=== PATIENT | female | born 1940 | race Caucasian/White ===

== ENCOUNTER 2020-02-04 16:29 | Emergency (ER) | payer MEDICARE, SELFPAY ==
[2020-02-04] VITALS (7 sets, daily range): BP systolic 83–138; BP diastolic 48–62; PULSE 63–76; RESP 20–21; TEMP 36.9; O2SAT 97–100
--- NOTE | 2020-02-04 16:45 | ED.DIZZY ---
HPI - Dizziness General Chief Complaint: Dizziness Stated Complaint: LIGHTHEADED Time Seen by Provider: 02/04/20 16:45 History of Present Illness HPI Narrative: Increasingly unsteady gait for quite some time. Worse today. Especially when she first stands up. 2 falls today. No dizziness. She did bump her head slightly as she fell one of the times, but does not believe that there was any significant impact. She reports poor appetite recently. She has Parkinson's disease and is walker deendent. Related Data Home Medications Medication Instructions Recorded Confirmed carbidopa-levodopa tablet 02/04/20 donepezil mg 02/04/20 02/04/20 memantine [Namenda XR] 28 mg PO DAILY 02/04/20 02/04/20 pravastatin 02/04/20 Allergies Allergy/AdvReac Type Severity Reaction Status Date / Time nitrofurantoin Allergy Unknown Rash Unverified 02/04/20 17:00 Review of Systems Review of Systems: All systems reviewed & are unremarkable except as noted in HPI and below Constitutional: Constitutional: Denies fever(s) and Reports weakness Cardiovascular: Cardiovascular: Denies chest pain Respiratory: Respiratory: Denies dyspnea Gastrointestinal: Gastrointestinal: Denies nausea and Denies vomiting Genitourinary: Genitourinary: Denies hematuria and Denies dysuria Musculoskeletal: Musculoskeletal: Denies back pain Neurologic: Denies dizziness ON LICENSE OF [facility] Social History Social History Gender identity (if verbalized by the patient): Female Exam Const: General: healthy appearing, no acute distress and alert Orientation/consciousness: patient oriented x3 HENMT: Head: normal to inspection Neck: Neck: normal visual inspection and no lymphadenopathy Chest: Chest palpation & inspection: no tenderness Resp: Effort & Inspection: normal respiratory effort Auscultation: clear to auscultation bilaterally, no rales, no rhonchi and no wheezes Cardio: Jugular venous distension: no JVD Rate: regular rate Rhythm: regular rhythm Heart sounds: no murmurs GI: Inspection: non-distended GI Palp: Yes Soft to palpation and No Tenderness to palpation present (GI) Skin: General skin exam: normal color Neuro: General: patient oriented x3 and moves all extremities Speech: normal speech Extrem: General: no edema Psych: Appearance: well kempt Affect: normal affect Course Vital Signs Vital signs: Vital Signs Temperature 36.9 C 02/04/20 16:38 Pulse Rate 70 02/04/20 16:38 Respiratory Rate 21 H 02/04/20 16:38 Blood Pressure 113/61 02/04/20 16:38 Pulse Oximetry 100 02/04/20 16:38 Temperature 36.9 C 02/04/20 16:38 Pulse Rate 69 02/04/20 20:08 Respiratory Rate 20 02/04/20 20:08 Blood Pressure 101/60 02/04/20 20:08 Pulse Oximetry 97 02/04/20 20:08 MDM - Dizziness MDM Narrative Medical decision making narrative: She appears mildly dehydrated. Symptoms improved with fluids. Walking with stable gait. No significant injury identified Medical Records Attestation: I reviewed the patient's medical records. Lab Data Attestation: I reviewed the patient's lab results. Result diagrams: 02/04/20 17:05 02/04/20 17:05 Labs: Lab Results 02/04/20 02/04/20 02/04/20 Range/Units 17:05 17:05 17:24 WBC 6.3 (4.5-10.0) K/mm3 RBC 4.13 L (4.2-5.4) M/mm3 Hgb 12.6 (12.0-15.0) g/dL Hct 38.4 (37.0-47.0) % MCV 93.0 (80-100) fl MCH 30.5 (26-34) pg MCHC 32.8 (32-36) g/dl RDW 13.2 (11.5-14.5) % Plt Count 167 (150-375) k/mm3 MPV 12.2 H (7.4-10.4) fl Immature Gran % (Auto) 0.6 H (0-0.5) % Neut % (Auto) 82.5 H (45.5-73.1) % Lymph % (Auto) 8.7 L (18.3-44.2) % Lake % (Auto) 6.5 (2.6-8.5) % Eos % (Auto) 1.4 (0-4.4) % Baso % (Auto) 0.3 (0.2-1.2) % Lymph # (Auto) 0.55 L (0.9-3.2) K/mm3 Lake # (Auto) 0.4 (0.1-0.6) K/mm3 Eos # (Auto) 0.1 (0-0.3) K/mm3 Baso # (Auto) 0.0 (0.0-0.1) K/mm3 Abs Immat Gran (auto
--- NOTE | 2020-02-04 16:46 | ECG_ITS ---
Measurements Intervals [place] Rate: 71 P: 4 IN: 231 QRS: -21 QRSD: 96 T: 114 QT: 404 QTc: 442 Interpretive Statements SINUS RHYTHM WITH FIRST DEGREE AV BLOCK LEFT VENTRICULAR HYPERTROPHY AND ST-T CHANGE INFERIOR INFARCT, AGE INDETERMINATE BORDERLINE ST-T WAVE ABNORMALITY- ANTEROLATERAL LEADS BASELINE ARTIFACT- I, III, AVR, AVL, AVF ABNORMAL ECG Electronically Signed On 02-05-2020 7:11:51 CDT by Lio Locke D.O.
[2020-02-04] MEDS: SODIUM CHLORIDE 0.9% IV 1,000 ML 999 ML IV CONT (17:03)
[2020-02-04 17:10] LABS: Basophils Percent Auto 0.3 % (0.2-1.2); Eosinophils Absolute Auto 0.1 K/mm3 (0-0.3); Eosinophils Percent Auto 1.4 % (0-4.4); Hematocrit 38.4 % (37.0-47.0); Hemoglobin 12.6 g/dL (12.0-15.0); Immature Granulocyte Absolute 0.04 K/mm3 (0.00-0.031); Immature Granulocyte Percent A 0.6 % (0-0.5); Lymphocytes Absolute Auto 0.55 K/mm3 (0.9-3.2); Lymphocytes Percent Auto 8.7 % (18.3-44.2); Mean Corpuscular HGB Conc 32.8 g/dl (32-36); Mean Corpuscular Hemoglobin 30.5 pg (26-34); Mean Platelet Volume 12.2 fl (7.4-10.4); Monocytes Absolute Auto 0.4 K/mm3 (0.1-0.6); Monocytes Percent Auto 6.5 % (2.6-8.5); Neutrophils Absolute Auto 5.2 K/mm3 (1.3-6.7); Neutrophils Percent Auto 82.5 % (45.5-73.1); Platelet Count Result 167 k/mm3 (150-375); Red Blood Count 4.13 M/mm3 (4.2-5.4); Red Cell Distribution Width 13.2 % (11.5-14.5); White Blood Count 6.3 K/mm3 (4.5-10.0)
[2020-02-04 17:43] LABS: Add Urine Microscopic? YES; Appearance Urine Clear (Clear); Bacteria Urine Trace /hpf; Bilirubin Urine Negative (Negative); Blood Urine Negative (Negative); Calcium Oxalate Crystals Urine Present /hpf; Color Urine Yellow (Yellow); Glucose Urine UA Negative (Negative); Hyaline Casts Urine 20-29 /lpf; Ketones Urine Trace mg/dL (Negative); Leukocyte Esterase Ur Negative LEU/UL (Negative); Mucus Urine Rare /lpf; Nitrate Urine Negative (Negative); Protein Urine 1+ mg/dL (Negative); RBC Urine 0-2 /hpf (0-2); Specific Grav Ur 1.018 (1.001-1.035); Squamous Epithelial Cell Urine Moderate /hpf (Few); Urobilinogen Urine Negative mg/dL (<2.0); WBC Urine 0-3 /hpf
[2020-02-04 18:23] LABS: Alanine Aminotransferase 31 U/L (4-35); Albumin Level 4.3 g/dL (3.5-5.1); Alkaline Phosphatase 63 U/L (38-126); Aspartate Amino Transferase 181 U/L (14-36); Bilirubin,Total 1.1 mg/dL (0.2-1.3); Blood Urea Nitrogen 29 mg/dL (7-17); Carbon Dioxide 27 mmol/L (22-30); Chloride 94 mmol/L (98-107); Estimated CRCL calculation 28 ml/min; Estimated Glomerular Filt Rate 39; Glucose 91 mg/dL (65-105); Potassium 3.4 mmol/L (3.4-5.0); Sodium 133 mmol/L (137-145)
--- NOTE | 2020-02-04 19:55 | PC.NURSE ---
Called [facility] to transport back to [place]...ETA 2044
--- NOTE | 2020-02-04 20:18 | PC.NURSE ---
spoke with randall rick at [facility]. updates given. staets no trnasport avail for pt. pt states unable to get in and out of care. pt to take ambulance back to [facility], eta 2039. al questions answered
== END 2020-02-04 20:53 ==
PROVIDERS: Emergency Provider Emergency Medicine; PCP Family Medicine
DX: I95.1 Orthostatic hypotension (principal)
CPT/HCPCS: 36415; 51701; 80053; 81001; 85025; 93005; 96360; 99283; J7030

== ENCOUNTER 2022-08-23 12:57 | Inpatient (IN) | payer MEDICARE, SELFPAY ==
--- NOTE | ~2022-08-23 | CT_ITS ---
EXAMINATION: CT brain wo con DATE: 08/23/2022 18:11 INDICATION: Falls and weakness TECHNIQUE: Computed tomography (CT) of the head was performed without intravenous contrast. Sagittal and coronal reconstructions were performed. The mA was adjusted according to patient size. Iterative reconstruction technique was employed. The dose-length product was 605.33 mGy-cm. COMPARISON: head CT dated 04/05/2015 FINDINGS: No acute fracture. No acute intracranial hemorrhage, acute infarction or abnormal extra axial fluid c ollection. There is mild scattered white matter hypoattenuation consistent with chronic small vessel ischemic disease. Symmetric prominence of the sulci and and subarachnoid spaces overlying the convexi ties consistent with moderate age-appropriate diffuse cerebral volume loss. Ventricles are normal and symmetric. No mass/mass effect. Changes of left intraocular lens replacement. The orbits and mastoid air cells are normal. Mild mucoperiosteal thickening in the bilateral ethmoid sinuses. Increased chiquis stases at the osseous defect just to the right of midline at the anterior portion of the incompletely visualized ring of C1 which could be either developmental or a chronic nonunited fracture. Small allison unt of chronic calcified pannus about the tip of the dens. IMPRESSION: 1. No acute fracture or acute intracranial process. 2. Age-related changes the brain including moderate diffuse volume loss and mild scattered white len er hypoattenuation consistent with chronic small vessel ischemic disease. 3. Increasing diastases at a chronic defect at the anterior ring of C1 which could be either developm ental or sequela of chronic nonunited fracture. Reviewed, dictated and finalized at location A. NURSE IMPRESSION: 1. No acute fracture or acute intracranial process. 2. Age-related changes the brain including moderate diffuse volume loss and mil d scattered white matter hypoattenuation consistent with chronic small vessel i schemic disease. 3. Increasing diastases at a chronic defect at the anterior ring of C1 which co uld be either developmental or sequela of chronic nonunited fracture.
--- NOTE | ~2022-08-23 | XR_ITS ---
EXAMINATION: XR chest 1V portable DATE: 08/27/2022 13:57 INDICATION: Dyspnea. TECHNIQUE: A single frontal view of the chest was obtained. COMPARISON: Chest single view 08/23/2022, chest CT 08/23/2022 FINDINGS: There is mild atelectasis at left lower lung zone. No pleural effusion or pneumothorax. The heart size is normal. Calcified mediastinal lymph nodes are consistent with old granulomatous diseas e. There are multiple old right rib fractures. IMPRESSION: 1. Mild atelectasis in left lower lung zone. Reviewed, dictated and finalized at location A. N STEWARD
--- NOTE | ~2022-08-23 | CT_ITS ---
CT scan of the left upper extremity CLINICAL HISTORY: Cellulitis, abscess TECHNIQUE: Following intravenous administration of 100 cc of Omnipaque 350 contrast sagittal, axial i maging of the left upper chest was performed. Sagittal and coronal reformatted images were constructe d. Dose reduction technique was used on this scan by utilizing automated exposure control and iterati ve reconstruction technique. FINDINGS: Osseous structures are intact. No fracture or dislocation seen. No periosteal reaction or d estructive change identified. Visualized musculature is grossly unremarkable. There is marked, diffuse subcutaneous soft tissue margarita ma and swelling, consistent with history of cellulitis. No definite abscess identified. No joint effu tanner identified. IMPRESSION: Marked, diffuse subcutaneous soft tissue edema and swelling, consistent with cellulitis. No evidence for abscess or osteomyelitis. Reviewed, dictated and finalized at location [] YLENE OPERATOR IMPRESSION: Marked, diffuse subcutaneous soft tissue edema and swelling, consistent with ce llulitis. No evidence for abscess or osteomyelitis.
--- NOTE | ~2022-08-23 | US_ITS ---
EXAMINATION: US soft tissue UE LT DATE: 08/28/2022 19:32 INDICATION: Left upper limb swelling and cellulitis. TECHNIQUE: Multiple grayscale and Doppler ultrasound images of the left upper limb were obtained. COMPARISON: CT 08/26/2022 FINDINGS: There is subcutaneous edema with hyperechoic fat in left upper limb in the patient's area o f concern, consistent with cellulitis. No abscess. IMPRESSION: 1. Left upper limb cellulitis. No abscess. Reviewed, dictated and finalized at location A. SALES TECHNICAL CONSULTANT
--- NOTE | ~2022-08-23 | CT_ITS ---
EXAMINATION: CT diagnostic chest wo con DATE: 08/23/2022 19:39 INDICATION: lung nodule TECHNIQUE: Computed tomography (CT) of the chest was performed without intravenous contrast. Addition al 3D reconstructions utilizing coronal maximum intensity projection (MIP) were performed. Automated exposure control and iterative reconstruction technique were employed. The dose-length product was 33 8.16 mGy-cm. COMPARISON: Radiographs dated 08/23/[address] dated 04/14/1970 FINDINGS: Mild basilar and dependent atelectasis in the bilateral lower lobes. Additional mild discoid atelecta sis in the left upper lobe. No pneumonia, pulmonary edema, pleural effusion or pneumothorax. No suspi cious pulmonary nodules. Cardiomegaly. Atherosclerotic coronary artery calcification. No pericardial effusion. Fusiform ascending thoracic aortic aneurysm measuring up to 4.5 cm. Calcified mediastinal l ymph nodes consistent with old granulomatous disease. No pathologically enlarged thoracic lymphadenop athy. There is callus formation surrounding healing anterolateral right second, third and fourth rib fractures which accounts for the nodular opacity of concern on the prior radiographs. 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 Mild thoracic dextro scoliosis. Severe cervical and tho racolumbar spondylosis. 4 cm parapelvic cyst at the right kidney. 12 mm hyperdense paranasal sinuses hemorrhagic left renal cyst. Tiny gallstones in the dependent aspect of the normal-appearing visualiz ed portion of the gallbladder. IMPRESSION: 1. Calcifications surrounding a healing subacute anterolateral right second, third and fourth rib fra ctures which accounts for the nodular opacity of concern. 2. Scattered atelectasis in both lungs with dependent and basilar predominance. No other acute cardio pulmonary disease. 3. Cardiomegaly. 4. 4.5 cm ascending thoracic aortic aneurysm. 5. Cholelithiasis. Reviewed, dictated and finalized at location A. TRATOR IMPRESSION: 1. Calcifications surrounding a healing subacute anterolateral right second, th ird and fourth rib fractures which accounts for the nodular opacity of concern. 2. Scattered atelectasis in both lungs with dependent and basilar predominance. No other acute cardiopulmonary disease. 3. Cardiomegaly. 4. 4.5 cm ascending thoracic aortic aneurysm. 5. Cholelithiasis.
--- NOTE | ~2022-08-23 | US_ITS ---
EXAMINATION: US venous doppler UE DATE: 08/23/2022 18:06 INDICATION: Left upper extremity edema and erythema TECHNIQUE: Grayscale images without and with compression and Doppler images of the bilateral upper ex tremity veins were obtained. COMPARISON: None. FINDINGS: The left internal jugular vein, subclavian vein, axillary vein, brachial vein, basilic vein, cephalic vein, radial vein, and ulnar vein are patent. IMPRESSION: 1. Patent left upper extremity veins. No evidence of venous thrombosis. Reviewed, dictated and finalized at location A. OR FUNCTIONAL ANALYST
--- NOTE | ~2022-08-23 | XR_ITS ---
EXAMINATION: XR elbow LT min 3V DATE: 08/23/2022 18:00 INDICATION: Left elbow erythema and swelling TECHNIQUE: Anteroposterior, two oblique and lateral views of the left elbow were obtained. COMPARISON: None. FINDINGS: Alignment is normal. No fracture or joint effusion. Joint spaces are normal. Soft tissues are unremar kable. IMPRESSION: 1. Negative left elbow radiographs. Reviewed, dictated and finalized at location A. WEAR SALESPERSON
--- NOTE | ~2022-08-23 | XR_ITS ---
EXAMINATION: XR chest 1V DATE: 08/23/2022 18:01 INDICATION: Weakness. Frequent falls. TECHNIQUE: frontal view of the chest was obtained. COMPARISON: Chest radiograph and CT dated 04/14/2017 FINDINGS: Mild linear atelectasis at the lateral left lower lung zone and mild streaky bibasilar opacities and favor atelectasis over pneumonia. Nodular opacity lateral right mid to upper lung zone which may be a rtifact of superimposed rib shadows however neoplasm cannot be absolutely excluded. Cardiomegaly. Andrew cified left hilar and mediastinal lymph nodes consistent with old granulomatous disease. Atherosclero tic aorta. Mild S-shaped thoracolumbar scoliosis with severe spondylosis. Bilateral glenohumeral oste oarthritis likely severe with suggestion of flattening of portions of the articular surfaces of the b ilateral humeral heads. IMPRESSION: 1. Nodular opacity lateral right mid to upper lung zone which could be artifact of superimposed rib s hadows or lung cancer would recommend further evaluation with chest CT. 2. Mild bibasilar atelectasis versus less likely pneumonia. 3. Cardiomegaly. Reviewed, dictated and finalized at location A. ICAL RESEARCH NURSE IMPRESSION: 1. Nodular opacity lateral right mid to upper lung zone which could be artifact of superimposed rib shadows or lung cancer would recommend further evaluation with chest CT. 2. Mild bibasilar atelectasis versus less likely pneumonia. 3. Cardiomegaly.
--- NOTE | ~2022-08-23 | XR_ITS ---
EXAMINATION: XR shoulder LT min 2V DATE: 08/23/2022 18:01 INDICATION: Left shoulder pain. Frequent falls. TECHNIQUE: AP internally and externally rotated, AP oblique externally rotated and transscapular Y vi ews of the left shoulder were obtained. COMPARISON: None FINDINGS: Normal alignment. No fracture.Severe glenohumeral osteoarthritis with remodeling of the left humeral head. Moderate left acromioclavicular osteoarthritis. Calcified left hilar and mediastinal lymph nod es consistent with old granulomatous disease. Soft tissues are unremarkable. 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 Reviewed, dictated and finalized at location A. CORE WELDER
[2022-08-23 13:06] VITALS: BP 118/64; PULSE 77; RESP 18; TEMP 37.2; O2SAT 95
--- NOTE | 2022-08-23 17:22 | ECG_ITS ---
Measurements Intervals [place] Rate: 72 P: 12 MT: 222 QRS: -34 QRSD: 89 T: 107 QT: 399 QTc: 437 Interpretive Statements SINUS RHYTHM WITH FIRST DEGREE AV BLOCK WITH OCCASIONAL VENTRICULAR PREMATURE COMPLEXES POSSIBLE LEFT ATRIAL ENLARGEMENT [-0.1mV P WAVE IN V1/V2] MARKED LEFT AXIS DEVIATION [QRS AXIS < -30] Possible old inferior NM LEFT VENTRICULAR HYPERTROPHY AND ST-T CHANGE [VOLTAGE CRITERIA PLUS ST/T ABNORMALITY] COMPARED TO ECG 02/04/2020 16:40:25 LEFT-AXIS DEVIATION NOW PRESENT The ischemic ST depression has improved Electronically Signed On 08-24-2022 8:38:07 BRANCH MAKER by Erin Goins M.D.
--- NOTE | 2022-08-23 17:24 | ED.UPPEXIN ---
HPI - Extremity Injury (Upper) General Chief Complaint: Extremity Injury, Upper <Christine Reardon PA-C - Last Filed: 08/23/22 20:44> Stated Complaint: left arm swelling <Christine Reardon PA-C - Last Filed: 08/23/22 20:44> Time Seen by Provider: 08/23/22 17:05 <Christine Reardon PA-C - Last Filed: 08/23/22 20:44> Source: patient, family and EMS <Christine Reardon PA-C - Last Filed: 08/23/22 20:44> Mode of arrival: EMS <ROSELIA Lawrence Last Filed: 08/23/22 20:44> Limitations: dementia <Christine Reardon PA-C - Last Filed: 08/23/22 20:44> History of Present Illness HPI narrative: This is a 82 year old female that presents to the ER for left arm swelling and redness. Ongoing over the last 5 days. Patient is noted to have a superficial abrasion in the area of redness. She does not remember what its from. Patient reports she has been feeling generally weak and has been falling lately. Reports she loses her balance. Does not report any specific injuries from these falls. She was recently on an antibiotic for UTI. Family is unsure which antibiotic. Denies fever, cough, congestion, chest pain, shortness of breath, abdominal pain, vomiting, or dysuria. <Christine Reardon PA-C - Last Filed: 08/23/22 20:44> Related Data Home Medications: Home Medications Medication Instructions Recorded Confirmed donepezil 5 mg tablet 5 mg PO DAILY 02/04/20 08/24/22 pravastatin 40 mg tablet 80 mg PO DAILY 02/04/20 08/24/22 Tylenol Arthritis Pain 650 mg PO TID PRN Pain 08/24/22 08/24/22 artificial 1 drp EACH EYE TID 08/24/22 08/24/22 tears(sfjpfhs-pywzceic-cqyjorj) 0.1 %-0.3 %-0.2 % eye drops (GenTeal Tears Moderate) atenolol 25 mg tablet 25 mg PO BID 08/24/22 08/24/22 bupropion HCl 150 mg tablet,12 hr 150 mg PO QAM 08/24/22 08/24/22 sustained-release carbidopa 25 mg-levodopa 250 mg 2 tablet PO QID 08/24/22 08/24/22 tablet celecoxib 200 mg capsule 200 mg PO DAILY 08/24/22 08/24/22 cyanocobalamin (vitamin B-12) See Rx Instructions .Route .COMPLEX 08/24/22 08/24/22 1,000 mcg/mL injection syringe docusate sodium 100 mg capsule 100 mg PO BID 08/24/22 08/24/22 fluticasone propionate 50 2 spray intranasal BID PRN 08/24/22 08/24/22 mcg/actuation nasal Congestion spray,suspension lisinopril 20 mg tablet 20 mg PO DAILY 08/24/22 08/24/22 memantine 28 mg capsule 28 mg PO DAILY 08/24/22 08/24/22 sprinkle,extended release 24hr mirtazapine 30 mg tablet 30 mg PO DAILY 08/24/22 08/24/22 oxybutynin chloride 5 mg 5 mg PO DAILY 08/24/22 08/24/22 tablet,extended release 24 hr oxymetazoline 0.05 % nasal spray 2 spray intranasal Q12H PRN 08/24/22 08/24/22 Congestion polyethylene glycol 3350 17 gram 17 g PO DAILY PRN Constipation 08/24/22 08/24/22 oral powder packet sennosides 8.6 mg-docusate sodium 1 tab-cap PO HS 08/24/22 08/24/22 50 mg tablet (Stimulant Laxative Plus) sertraline 100 mg tablet 100 mg PO DAILY 08/24/22 08/24/22 <Christine Reardon PA-C - Last Filed: 08/23/22 20:44> Allergies/Adverse Reactions: Allergies Allergy/AdvReac Type Severity Reaction Status Date / Time nitrofurantoin Allergy Unknown Rash Verified 08/24/22 01:42 <Christine Reardon PA-C - Last Filed: 08/23/22 20:44> Review of Systems Review of Systems: CONSTITUTIONAL: Denies fever EYES: Denies redness, or discharge. ENT: Denies rhinorrhea, congestion, sore throat CARDIOVASCULAR: Denies chest pain, or edema. RESPIRATORY: Denies cough or dyspnea. GASTROINTESTINAL: Denies abdominal pain, nausea, vomiting GENITOURINARY: Denies dysuria or hematuria. SKIN: Denies rash MUSCULOSKELETAL: Reports treatment of allergy. Denies back pain NEUROLOGIC: Reports generalized weakness. <Christine Reardon PA-C - Last Filed: 08/23/22 20:44> All systems reviewed & are unremarkable except as noted in HPI and below <Christine Reardon PA-C - Last Filed: 08/23/22 20:44> [facility] Past Medical History Medical History:
[2022-08-23] MEDS: SODIUM CHLORIDE 0.9% IV 500 ML 999 ML IV CONT (17:29)
[2022-08-23 17:42] LABS: Basophils Percent Auto 0.2 % (0.2-1.2); Eosinophils Absolute Auto 0.1 K/mm3 (0-0.3); Eosinophils Percent Auto 0.3 % (0-4.4); Hematocrit 42.8 % (37.0-47.0); Hemoglobin 13.4 g/dL (12.0-15.0); Immature Granulocyte Absolute 0.08 K/mm3 (0.00-0.031); Immature Granulocyte Percent A 0.5 % (0-0.5); Lymphocytes Absolute Auto 0.69 K/mm3 (0.9-3.2); Lymphocytes Percent Auto 4.3 % (18.3-44.2); Mean Corpuscular HGB Conc 31.3 g/dl (32-36); Mean Corpuscular Hemoglobin 31.6 pg (26-34); Mean Corpuscular Volume 100.9 fl (80-100); Mean Platelet Volume 10.9 fl (7.4-10.4); Monocytes Absolute Auto 1.2 K/mm3 (0.1-0.6); Monocytes Percent Auto 7.8 % (2.6-8.5); Neutrophils Absolute Auto 13.9 K/mm3 (1.3-6.7); Neutrophils Percent Auto 86.9 % (45.5-73.1); Platelet Count Result 192 k/mm3 (150-375); Red Blood Count 4.24 M/mm3 (4.2-5.4); Red Cell Distribution Width 13.7 % (11.5-14.5)
[2022-08-23 17:49] LABS: Lactic Acid Reflex 1.2 mmol/L (0.7-2.0)
[2022-08-23 18:00] LABS: INR 1.2; Prothrombin Time 15.1 Seconds (11.1-14.7)
[2022-08-23 18:01] LABS: Partial Thromboplastin Time 37.8 SECONDS (22.3-36.8)
[2022-08-23 18:06] LABS: Alanine Aminotransferase 8 U/L (6-35); Alkaline Phosphatase 155 U/L (38-126); Anion Gap 8 mmol/L (8-16); Aspartate Amino Transferase 31 U/L (14-36); Blood Urea Nitrogen 26 mg/dL (7-17); CRP 20.4 mg/dL (<1.0); Calcium 8.9 mg/dL (8.4-10.2); Carbon Dioxide 27 mmol/L (22-30); Chloride 104 mmol/L (98-107); Estimated CRCL calculation 48 ml/min; Estimated Glomerular Filt Rate > 60; Glucose 104 mg/dL (65-110); Sodium 139 mmol/L (137-145)
[2022-08-23 19:13] LABS: Influenza A QL RT-PCR Negative (Negative); Influenza B QL RT-PCR Negative (Negative); SARS-CoV-2 RNA PCR Negative
--- NOTE | 2022-08-23 19:27 | PC.NURSE ---
report given to KAUSHAL Tobin.
[2022-08-23 19:33] LABS: Erythrocyte Sedimentation Rate 48 mm/hr (0-20)
[2022-08-23 20:13] LABS: Bacteria Urine 3+ /hpf; Mucus Urine Rare /lpf; Squamous Epithelial Cell Urine Rare /hpf (Few)
[2022-08-23 21:07] LABS: Appearance Urine Clear (Clear); Color Urine Yellow (Yellow); Specific Grav Ur 1.025 (1.001-1.035); pH Urine 5.5 (5.0-9.0)
[2022-08-23 21:08] LABS: Blood Urine Negative (Negative); Glucose Urine UA Negative (Negative); Ketones Urine 1+ mg/dL (Negative); Nitrate Urine Positive (Negative); Protein Urine Negative (Negative)
[2022-08-23 21:09] LABS: Add Urine Microscopic? YES; Bilirubin Urine Negative (Negative); Leukocyte Esterase Ur Trace LEU/UL (Negative); Urobilinogen Urine 0.2 mg/dL (<2.0)
--- NOTE | 2022-08-23 21:32 | PM.IMHP ---
H&P: HPI History of Present Illness Date/Time: 08/23/22 21:32 Chief Complaint: cellulitis Narrative: This is an 82-year-old female with past medical history significant for Parkinson's disease, Parkinson's dementia, dyslipidemia, chronic constipation. Patient was brought to the emergency room due to right for arm warmth, tenderness, redness, for the last 2-3 days, most of the history has been obtained from daughter who is at bedside according to daughter patient has been falling quite frequently patient lives at assisted living Facility. Patient denies any fevers, rigors, chills, nausea, vomiting, abdominal pain, cough, sputum production. Preliminary workup was significant for WBC 12546, patient tested negative for influenza A influenza B and COVID-19. Review of Systems Review of Systems: ROS unobtainable: Yes unobtainable due to mental status ( obtunded) [facility] Past Medical History Medical History (Updated 08/24/22 @ 02:51 by La Leblanc MD) History of chronic kidney disease History of dementia History of hyperlipidemia History of Parkinson's disease Social History Social History (Updated 08/23/22 @ 17:34 by Christine Reardon PA-C) Smoking status: Never smoker Alcohol intake: never Substance use: never Lack of Transportation: No Lack of Food: Never True Current Housing: I Have Housing Concerned About Future Housing: No Difficulty Paying Gas/Electric Bills: No Difficulty Paying for Meds: No Currently Unemployed: No Education: Associate Degree Difficulty w/ Childcare or Family Care: No Gender identity (if verbalized by the patient): Female Spiritual care concerns: No Meds Home Medications and Allergies Home Medications Medication Instructions Recorded Confirmed Type donepezil 5 mg tablet 5 mg PO DAILY 02/04/20 08/24/22 History pravastatin 40 mg tablet 80 mg PO DAILY 02/04/20 08/24/22 History Tylenol Arthritis Pain 650 mg PO TID PRN Pain 08/24/22 08/24/22 History artificial 1 drp EACH EYE TID 08/24/22 08/24/22 History tears(xmrjqtj-lzowpjwi-owyqsou) 0.1 %-0.3 %-0.2 % eye drops (GenTeal Tears Moderate) atenolol 25 mg tablet 25 mg PO BID 08/24/22 08/24/22 History bupropion HCl 150 mg tablet,12 hr 150 mg PO QAM 08/24/22 08/24/22 History sustained-release carbidopa 25 mg-levodopa 250 mg 2 tablet PO QID 08/24/22 08/24/22 History tablet celecoxib 200 mg capsule 200 mg PO DAILY 08/24/22 08/24/22 History cyanocobalamin (vitamin B-12) See Rx Instructions .Route .COMPLEX 08/24/22 08/24/22 History 1,000 mcg/mL injection syringe docusate sodium 100 mg capsule 100 mg PO BID 08/24/22 08/24/22 History fluticasone propionate 50 2 spray intranasal BID PRN 08/24/22 08/24/22 History mcg/actuation nasal Congestion spray,suspension lisinopril 20 mg tablet 20 mg PO DAILY 08/24/22 08/24/22 History memantine 28 mg capsule 28 mg PO DAILY 08/24/22 08/24/22 History sprinkle,extended release 24hr mirtazapine 30 mg tablet 30 mg PO DAILY 08/24/22 08/24/22 History oxybutynin chloride 5 mg 5 mg PO DAILY 08/24/22 08/24/22 History tablet,extended release 24 hr oxymetazoline 0.05 % nasal spray 2 spray intranasal Q12H PRN 08/24/22 08/24/22 History Congestion polyethylene glycol 3350 17 gram 17 g PO DAILY PRN Constipation 08/24/22 08/24/22 History oral powder packet sennosides 8.6 mg-docusate sodium 1 tab-cap PO HS 08/24/22 08/24/22 History 50 mg tablet (Stimulant Laxative Plus) sertraline 100 mg tablet 100 mg PO DAILY 08/24/22 08/24/22 History Allergies Allergy/AdvReac Type Severity Reaction Status Date / Time nitrofurantoin Allergy Unknown Rash Verified 08/24/22 01:42 Vital Signs Vital Signs - 24 hr 08/23/22 13:06 Temperature 98.9 F Pulse Rate 77 Respiratory Rate 18 Blood Pressure 118/64 Pulse Oximetry 95 Oxygen Delivery Room Air Exam Narrative: patient is laying in a stretcher Const: General: comfortable, no acute distress, we
[2022-08-23 22:14] VITALS: BP 152/87; PULSE 69; RESP 16; TEMP 36.6; O2SAT 94
[2022-08-23 23:38] VITALS: BP 152/89; PULSE 72; RESP 20; O2SAT 95
--- NOTE | 2022-08-23 23:56 | ADMGEN ---
This patient, Samantha Maldonado, was admitted to Medical Room 349-01. Patient/family oriented to hospital policies and general routines including ID bracelet, bed and alarms, visiting hours, pain management, procedures, bathroom and other care routines, personal items, smoking policy, room service/diet, and visiting hours. Information on how to activate the Rapid Response Team has been discussed. Patient/Family are encouraged to report perceived risks to care and to ask questions if they do not understand what they are told or what they should do.
[2022-08-24] VITALS (7 sets, daily range): BP systolic 128–159; BP diastolic 64–96; PULSE 66–83; RESP 16–18; TEMP 36.4–37.2; O2SAT 91–96; BMI 26.4
[2022-08-24 07:49] LABS: Basophils Percent Auto 0.2 % (0.2-1.2); Eosinophils Percent Auto 0.1 % (0-4.4); Hematocrit 40.3 % (37.0-47.0); Hemoglobin 12.9 g/dL (12.0-15.0); Immature Granulocyte Absolute 0.11 K/mm3 (0.00-0.031); Immature Granulocyte Percent A 0.7 % (0-0.5); Lymphocytes Absolute Auto 0.48 K/mm3 (0.9-3.2); Mean Corpuscular Hemoglobin 31.8 pg (26-34); Mean Corpuscular Volume 99.3 fl (80-100); Mean Platelet Volume 10.5 fl (7.4-10.4); Monocytes Absolute Auto 0.9 K/mm3 (0.1-0.6); Monocytes Percent Auto 5.7 % (2.6-8.5); Neutrophils Absolute Auto 14.3 K/mm3 (1.3-6.7); Neutrophils Percent Auto 90.3 % (45.5-73.1); Platelet Count Result 175 k/mm3 (150-375); Red Blood Count 4.06 M/mm3 (4.2-5.4); Red Cell Distribution Width 13.7 % (11.5-14.5); White Blood Count 15.9 K/mm3 (4.5-10.0)
[2022-08-24 08:06] LABS: CRP 25.7 mg/dL (<1.0)
--- NOTE | 2022-08-24 09:35 | PM.IMPN ---
Progress Note: A&P Assessment and Plan (1) Cellulitis of arm, left: Code(s): L03.114 - Cellulitis of left upper limb Status: Acute Assessment and Plan: Significant cellulitis to the left arm likely due to abrasion -It is somewhat firm but I will tried elevated today to see if that improves. If it does not improve may consider soft tissue ultrasound to rule out abscess -No blood clot noted on ultrasound -Continue cefazolin for now as the cellulitis seems to be improving. If there is lack of improvement tomorrow may consider adding vancomycin -Trend CBC, blood cultures pending (2) Parkinson's disease: Code(s): G20 - Parkinson's disease Status: Acute Assessment and Plan: Continue sinemet (3) Thoracic aortic aneurysm: Code(s): I71.20 - Thoracic aortic aneurysm, without rupture, unspecified Status: Acute Assessment and Plan: New diagnosis according to daughter -f/u with vascular sx -spoke with daughter about the size, no need for immediate intervention due to size (4) Recurrent falls: Code(s): R29.6 - Repeated falls Status: Acute Assessment and Plan: Order PT/OT -[place] now [place], may need rehab/SNF/higher level care (5) Leukocytosis: Code(s): D72.829 - Elevated white blood cell count, unspecified Status: Acute Assessment and Plan: Likely due to cellulitis -monitor trends (6) Pyuria: Code(s): R82.81 - Pyuria Status: Acute Assessment and Plan: Await urine culture -adjust abx as needed Time Spent With Patient Time with patient: 25 - 35 minutes Subjective Date/time seen: 08/24/22 09:35 Interval history: Pt is a Pleasantly demented patient here for cellulitis. Patient states she is doing well and she ate breakfast today. The pain in her arm is improving. She denies chest pain, shortness a breath, diarrhea, abdominal pain, fevers or chills. Review of Systems Review of Systems: All systems reviewed & are unremarkable except as noted in HPI and below Exam Narrative: General: Well developed well nourished patient in NAD HEENT: normocephalic Neck: supple Neuro: Alert and oriented x2. No resting tremor CV:RRR Resp:CTA Abd: Soft, non distended. No pain to palpation. Positive bowel sounds Extremities: Left arm with abrasion to the elbow and erythema circumferentially and swelling. it does seem to have regressed from the demarcated lines. no swelling in the lower extremities bilaterally Objective Data Vital Signs Vital Signs: Vital Signs - 24 hr 08/23/22 13:06 08/23/22 22:14 08/23/22 23:38 Temperature 98.9 F 97.8 F Pulse Rate 77 69 72 Respiratory Rate 18 16 20 Blood Pressure 118/64 152/87 H 152/89 H Pulse Oximetry 95 94 95 Oxygen Delivery Room Air 08/24/22 01:00 08/24/22 01:58 08/24/22 06:00 Temperature 97.8 F 97.5 F L Pulse Rate 66 66 72 Respiratory Rate 16 16 18 Blood Pressure 159/87 H 157/96 H Pulse Oximetry 91 91 96 Oxygen Delivery Room Air Intake/Output Intake/Output: Intake & Output 08/21/22 08/22/22 08/23/22 08/24/22 23:59 23:59 23:59 23:59 Intake Total 650 50 Output Total 400 0 Balance 250 50 Meds/Results Medications: Active Medications Generic Name Dose Route Start Last Admin Trade Name Freq PRN Reason Stop Dose Admin Acetaminophen 650 mg 08/24/22 02:56 Acetaminophen 325 Mg Tablet BY MOUTH TID PRN Pain Artificial Tears 1 drop 08/24/22 09:00 Artificial Tears Ophth Soln 15 Ml Bottle EACH EYE TID NIDA Atenolol 25 mg 08/24/22 09:00 Atenolol 25 Mg Tablet PO Q12HR COUNT INCLUDES THE [facility] Bupropion HCl 150 mg 08/24/22 09:00 Bupropion Hcl Sr (12 Hr) 150 Mg Tab PO QAM COUNT INCLUDES THE [facility] Carbidopa/Levodopa 2 tablet 08/24/22 08:00 Carbidopa/Levodopa 25/250 Mg Tablet PO 0800,1200,1700,2100 NIDA Celecoxib 200 mg 08/24/22 08:00 Celecoxib 200 Mg Capsule PO DAILY@0800 COUNT INCLUDES THE [facility] [employer]
[2022-08-24] MEDS: ARTIFICIAL TEARS OPHTH SOLN 15 ML BOTTLE 1 DROP EACH EYE ×3 (09:52→18:26)
[2022-08-24] MEDS: buPROPion HCL SR (12 HR) 150 MG TAB PO (09:53)
[2022-08-24] MEDS: CARBIDOPA/LEVODOPA 25/250 MG TABLET 2 TABLET PO ×4 (09:53→20:34)
[2022-08-24] MEDS: CELECOXIB 200 MG CAPSULE PO (09:53)
[2022-08-24] MEDS: DOCUSATE SODIUM 100 MG CAPSULE PO ×2 (09:53→18:26)
[2022-08-24] MEDS: SERTRALINE HCL 50 MG TABLET 100 MG PO (09:54)
[2022-08-24] MEDS: MEMANTINE HCL XR 28 MG CAP PO (09:54)
[2022-08-24] MEDS: lisinopriL 20 MG TABLET PO (09:54)
[2022-08-24] MEDS: MIRTAZAPINE 30 MG TABLET PO (09:54)
[2022-08-24] MEDS: PRAVASTATIN SODIUM 20 MG TABLET 80 MG PO (09:54)
[2022-08-24] MEDS: DONEPEZIL HCL 5 MG TABLET PO (09:54)
[2022-08-24] MEDS: atenoloL 25 MG TABLET PO ×2 (09:55→20:33)
[2022-08-24 11:19] LABS: Estimated CRCL calculation 47 ml/min; Estimated Glomerular Filt Rate > 60
[2022-08-24] MEDS: SENNA/DOCUSATE SODIUM TABLET 1 TAB PO (20:34)
[2022-08-25 05:16] VITALS: BP 171/84; PULSE 63; RESP 20; TEMP 36.4; O2SAT 94
[2022-08-25 06:37] LABS: Anion Gap 5 mmol/L (8-16); Blood Urea Nitrogen 23 mg/dL (7-17); CRP 26.2 mg/dL (<1.0); Calcium 8.5 mg/dL (8.4-10.2); Carbon Dioxide 28 mmol/L (22-30); Chloride 104 mmol/L (98-107); Estimated CRCL calculation 47 ml/min; Estimated Glomerular Filt Rate > 60; Glucose 104 mg/dL (65-110); Potassium 3.7 mmol/L (3.4-5.0); Sodium 137 mmol/L (137-145)
[2022-08-25 08:45] LABS: Basophils Absolute Auto 0.1 K/mm3 (0.0-0.1); Basophils Percent Auto 0.4 % (0.2-1.2); Eosinophils Absolute Auto 0.2 K/mm3 (0-0.3); Eosinophils Percent Auto 1.2 % (0-4.4); Hematocrit 41.1 % (37.0-47.0); Hemoglobin 12.7 g/dL (12.0-15.0); Immature Granulocyte Absolute 0.13 K/mm3 (0.00-0.031); Immature Granulocyte Percent A 0.9 % (0-0.5); Lymphocytes Absolute Auto 0.74 K/mm3 (0.9-3.2); Mean Corpuscular HGB Conc 30.9 g/dl (32-36); Mean Corpuscular Volume 103.5 fl (80-100); Mean Platelet Volume 11.4 fl (7.4-10.4); Monocytes Absolute Auto 0.9 K/mm3 (0.1-0.6); Monocytes Percent Auto 6.2 % (2.6-8.5); Neutrophils Absolute Auto 12.8 K/mm3 (1.3-6.7); Neutrophils Percent Auto 86.3 % (45.5-73.1); Platelet Count Result 175 k/mm3 (150-375); Red Blood Count 3.97 M/mm3 (4.2-5.4); White Blood Count 14.8 K/mm3 (4.5-10.0)
--- NOTE | 2022-08-25 08:56 | PM.IMPN ---
Progress Note: A&P Assessment and Plan (1) Cellulitis of arm, left: Code(s): L03.114 - Cellulitis of left upper limb Status: Acute Assessment and Plan: Significant cellulitis to the left arm. No necrosis. -No blood clot noted on ultrasound -increase cefazolin to 2 grams Q8 hours and Vancomycin IV pharmacy to dose. -check non-vascular US to rule out abscess. -trend CBC. CRP and WBC still elevated. Afebrile. -Elevate extremity. -Apply ice for pain and swelling. -PRN analgesics -triple antibiotic ointment to all other abrasions (2) Parkinson's disease: Code(s): G20 - Parkinson's disease Status: Chronic Assessment and Plan: Continue sinemet (3) Thoracic aortic aneurysm: Code(s): I71.20 - Thoracic aortic aneurysm, without rupture, unspecified Status: Chronic Assessment and Plan: New diagnosis according to daughter -f/u with vascular sx -size discussed with her daughter, no need for immediate intervention due to size (4) Recurrent falls: Code(s): R29.6 - Repeated falls Status: Acute Assessment and Plan: PT/OT evaluation -pt now at [place], may need rehab/SNF/higher level care -change remeron to HS -stop oxybutynin (5) Leukocytosis: Code(s): D72.829 - Elevated white blood cell count, unspecified Status: Acute Assessment and Plan: Likely due to cellulitis and UA suggests infection. Urine culture >100,000 CFU e.coli -monitor trends -continue antibiotics (6) Pyuria: Code(s): R82.81 - Pyuria Status: Acute Assessment and Plan: Await urine culture -adjust abx as needed Subjective Date/time seen: 08/25/22 08:56 Her left arm is still red, painful and swollen. She does not think there is much improvement and thinks it may be slightly more swollen than yesterday. No paresthesia or paralysis. She had some tenderness to her anterior chest last night while sleeping but it is gone now. She moves around more at night and her legs, arms, left shoulder and chest hurts. No shortness of breath, palpitations, abd pain, N/V/D. Review of Systems Review of Systems: All systems reviewed & are unremarkable except as noted in HPI and below Exam Narrative: GENERAL: No acute respiratory distress, frail, older adult female. Sitting up in bed HEENT: Normocephalic. sclera nonicteric. PERRL. EOM intact, dry mucous membranes NECK: No JVD. RESPIRATORY:? RR regular at rest. Lung sounds clear to auscultation bilateral upper and left lower lung [place]. diminished right lower lobe. No wheezing, crackles or rhonchi. CARDIO:? Normal S1 and S2 regular rate and rhythm. No murmurs, gallops or rubs. GI: soft, round and nontender to palpation. bowel sounds present in all quadrants. No suprapubic tenderness. SKIN: Fair, warm & dry. no rashes or open lesions. Left mid-lower forearm to mid-upper arm distal to shoulder with moderate edema, erythema and very tender to palpation. No significant change regression of erythema from marked borders. Left olecranon with scabbed abrasion. Left dorsal foot area with small abrasion, right hand lateral border with raised, scabbed abrasion, left knee with multiple small abrasions- all open to air without drainage. EXTREMITIES: Grossly normal ROM. no edema, redness or tenderness. dorsalis pedis pulses palpable and equal. NEURO: no focal deficits. cranial nerves 2-12 grossly intact. sensation intact bilateral upper and lower extremities. Objective Data Vital Signs Vital Signs: Vital Signs - 24 hr 08/24/22 09:55 08/24/22 14:00 08/24/22 20:33 Temperature 98.3 F Pulse Rate 83 73 78 Respiratory Rate 18 Blood Pressure 128/68 Pulse Oximetry 94 Oxygen Delivery 08/24/22 20:00 08/24/22 21:25 08/25/22 05:16 Temperature 99 F 97.5 F L Pulse Rate 75 63 Respiratory Rate 18 20 Blood Pressure 134/64 171/84 H Pulse Oximetry 94 94 Oxygen Delivery Room Air I
[2022-08-25] MEDS: ARTIFICIAL TEARS OPHTH SOLN 15 ML BOTTLE 1 DROP EACH EYE ×3 (09:09→17:56)
[2022-08-25] MEDS: buPROPion HCL SR (12 HR) 150 MG TAB PO (09:13)
[2022-08-25] MEDS: CARBIDOPA/LEVODOPA 25/250 MG TABLET 2 TABLET PO ×4 (09:13→21:19)
[2022-08-25] MEDS: CELECOXIB 200 MG CAPSULE PO (09:13)
[2022-08-25] MEDS: MEMANTINE HCL XR 28 MG CAP PO (09:14)
[2022-08-25] MEDS: lisinopriL 20 MG TABLET PO (09:14)
[2022-08-25] MEDS: MIRTAZAPINE 30 MG TABLET PO ×2 (09:14→21:19)
[2022-08-25] MEDS: DONEPEZIL HCL 5 MG TABLET PO (09:14)
[2022-08-25] MEDS: DOCUSATE SODIUM 100 MG CAPSULE PO ×2 (09:14→17:56)
[2022-08-25] MEDS: PRAVASTATIN SODIUM 20 MG TABLET 80 MG PO (09:14)
[2022-08-25] MEDS: SERTRALINE HCL 50 MG TABLET 100 MG PO (09:14)
[2022-08-25 09:15] VITALS: PULSE 67
[2022-08-25] MEDS: atenoloL 25 MG TABLET PO ×2 (09:15→21:20)
[2022-08-25] MEDS: FAMOTIDINE 10 MG TABLET PO ×2 (13:23→21:20)
[2022-08-25] MEDS: NEOMYCIN/POLYMYXIN/BACITRACIN OINTMENT 15 GM TUBE 1 APPLIC TOPICAL (13:24)
[2022-08-25] MEDS: LIDOCAINE 5% PATCH 2 PATCH TRANSDERM (13:24)
[2022-08-25] MEDS: ceFAZolin 2 GM/D5W 50 ML 2 GM/50 ML BAG IVPB ×2 (13:30→21:37)
[2022-08-25 14:00] VITALS: BP 146/70; PULSE 69; RESP 16; TEMP 36.8; O2SAT 95
[2022-08-25 20:51] VITALS: BP 163/82; PULSE 71; RESP 24; TEMP 37; O2SAT 94
[2022-08-25] MEDS: SENNA/DOCUSATE SODIUM TABLET 1 TAB PO (21:19)
[2022-08-25 21:20] VITALS: PULSE 72
[2022-08-25] MEDS: ACETAMINOPHEN 325 MG TABLET 650 MG PO (21:20)
[2022-08-26] MEDS: ceFAZolin 2 GM/D5W 50 ML 2 GM/50 ML BAG IVPB (05:39)
[2022-08-26 06:00] VITALS: BP 171/80; PULSE 65; RESP 16; TEMP 36.4; O2SAT 93
[2022-08-26] MEDS: hydrALAZINE HCL 20 MG/ML VIAL 10 MG IV PUSH (06:52)
[2022-08-26 07:10] LABS: Basophils Percent Auto 0.3 % (0.2-1.2); Eosinophils Absolute Auto 0.2 K/mm3 (0-0.3); Eosinophils Percent Auto 1.6 % (0-4.4); Hematocrit 40.8 % (37.0-47.0); Hemoglobin 12.8 g/dL (12.0-15.0); Immature Granulocyte Absolute 0.15 K/mm3 (0.00-0.031); Immature Granulocyte Percent A 1.1 % (0-0.5); Lymphocytes Percent Auto 6.4 % (18.3-44.2); Mean Corpuscular HGB Conc 31.4 g/dl (32-36); Mean Corpuscular Hemoglobin 32.1 pg (26-34); Mean Corpuscular Volume 102.3 fl (80-100); Mean Platelet Volume 10.7 fl (7.4-10.4); Monocytes Absolute Auto 0.6 K/mm3 (0.1-0.6); Monocytes Percent Auto 4.4 % (2.6-8.5); Neutrophils Absolute Auto 12.2 K/mm3 (1.3-6.7); Neutrophils Percent Auto 86.2 % (45.5-73.1); Platelet Count Result 177 k/mm3 (150-375); Red Blood Count 3.99 M/mm3 (4.2-5.4); White Blood Count 14.2 K/mm3 (4.5-10.0)
[2022-08-26 07:18] LABS: Estimated CRCL calculation 54 ml/min; Estimated Glomerular Filt Rate > 60
[2022-08-26] MEDS: PRAVASTATIN SODIUM 20 MG TABLET 80 MG PO (08:21)
[2022-08-26 08:22] VITALS: PULSE 78
[2022-08-26] MEDS: atenoloL 25 MG TABLET PO (08:22)
[2022-08-26] MEDS: CELECOXIB 200 MG CAPSULE PO (08:22)
[2022-08-26] MEDS: DONEPEZIL HCL 5 MG TABLET PO (08:22)
[2022-08-26] MEDS: lisinopriL 20 MG TABLET PO (08:22)
[2022-08-26] MEDS: CARBIDOPA/LEVODOPA 25/250 MG TABLET 2 TABLET PO ×3 (08:22→18:03)
[2022-08-26] MEDS: DOCUSATE SODIUM 100 MG CAPSULE PO ×2 (08:22→18:03)
[2022-08-26] MEDS: SERTRALINE HCL 50 MG TABLET 100 MG PO (08:23)
[2022-08-26] MEDS: FAMOTIDINE 10 MG TABLET PO (08:24)
[2022-08-26] MEDS: ARTIFICIAL TEARS OPHTH SOLN 15 ML BOTTLE 1 DROP EACH EYE ×3 (08:24→18:03)
[2022-08-26] MEDS: LIDOCAINE 5% PATCH 2 PATCH TRANSDERM (08:24)
[2022-08-26] MEDS: buPROPion HCL SR (12 HR) 150 MG TAB PO (08:29)
[2022-08-26] MEDS: NEOMYCIN/POLYMYXIN/BACITRACIN OINTMENT 15 GM TUBE 1 APPLIC TOPICAL (08:29)
[2022-08-26] MEDS: MEMANTINE HCL XR 28 MG CAP PO (08:58)
[2022-08-26 09:04] LABS: Blood Urea Nitrogen 21 mg/dL (7-17)
[2022-08-26 11:49] VITALS: BMI 26.4
--- NOTE | 2022-08-26 13:19 | PM.IMPN ---
Progress Note: A&P Assessment and Plan (1) Cellulitis of arm, left: Code(s): L03.114 - Cellulitis of left upper limb Status: Acute Assessment and Plan: Significant cellulitis to the left arm. No necrosis. -No blood clot noted on ultrasound -08/26 CT left arm with diffuse cellulitis, but no apparent joint effusion or abscess. -cefazolin increased to 2 grams Q8 hours 08/25 but no significant improvement. Stop Cefazolin. -Start Rocephin 2 gram Q24 hours and metronidazole 500 mg PO Q8 hours -Continue Vancomycin IV pharmacy to dose. -trend CBC. -CRP and WBC still elevated and bands continue to rise. -Afebrile. -Elevate extremity. -Apply ice for pain and swelling. -PRN analgesics -triple antibiotic ointment to all other abrasions (2) Parkinson's disease: Code(s): G20 - Parkinson's disease Status: Chronic Assessment and Plan: Continue sinemet (3) Thoracic aortic aneurysm: Code(s): I71.20 - Thoracic aortic aneurysm, without rupture, unspecified Status: Chronic Assessment and Plan: New diagnosis according to daughter -f/u with vascular sx -size discussed with her daughter, no need for immediate intervention due to size (4) Recurrent falls: Code(s): R29.6 - Repeated falls Status: Acute Assessment and Plan: PT/OT evaluation -pt now [place], may need rehab/SNF/higher level care -change remeron to HS -stop oxybutynin (5) Leukocytosis: Qualifiers: Leukocytosis type: bandemia Qualified Code(s): D72.825 - Bandemia Code(s): D72.829 - Elevated white blood cell count, unspecified Status: Acute Assessment and Plan: Likely due to cellulitis and UA suggests infection. -monitor trends -continue antibiotics as above (6) Pyuria: Code(s): R82.81 - Pyuria Status: Acute Assessment and Plan: Urine culture >100,000 CFU e.coli pansensitive -Treated with cefazolin started 08/23, changed to Rocephin 08/26 which both cover the urine. 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 Her daughter is at bedside and concerned that the redness is progressing up to the wrist. No fevers overnight. No paresthesia. She denies chest pain, SOB, abdominal pain, N/V/D or constipation. Review of Systems Review of Systems: All systems reviewed & are unremarkable except as noted in HPI and below Exam Narrative: GENERAL: No acute distress, Sitting up in bed HEENT: sclera nonicteric. Pupils equal and round. mucous membranes moist. NECK: No JVD. RESPIRATORY:? RR regular at rest. Lung sounds clear to auscultation bilaterally. No wheezing, crackles or rhonchi. CARDIO:? Normal S1 and S2 regular rate and rhythm. No murmurs, gallops or rubs. GI: soft, round and nontender to palpation. bowel sounds present in all quadrants. No suprapubic tenderness. SKIN: Left mid-lower forearm to mid-upper arm distal to shoulder with moderate edema, bright red erythema extending beyond marked borders. Very tender to palpation. Left olecranon with scabbed abrasion and no discharge. Left dorsal foot area with small abrasion, right hand lateral border with raised scabbed abrasion and small blood blister, left knee with multiple small abrasions- all open to air without drainage. EXTREMITIES: Grossly normal ROM. BLE without edema, redness or tenderness. dorsalis pedis pulses palpable and equal. NEURO: no focal deficits. Objective Data Vital Signs Vital Signs: Vital Signs - 24 hr 08/25/22 14:34 08/25/22 14:00 08/25/22 20:51 Temperature 98.2 F 98.6 F Pulse Rate 69 71 Respiratory Rate 16 24 H Blood Pressure 146/70 H 163/82 H Pulse Oximetry 95 94 Oxygen Delivery Room Air 08/25/22 21:20 08/25/22 20:00 08/26/22 06:00 Temperature 97.6 F P
[2022-08-26 14:00] VITALS: BP 145/71; PULSE 70; RESP 16; TEMP 36.4; O2SAT 91
--- NOTE | 2022-08-26 15:35 | PCPTNOTE ---
Attempted to see patient for PT, however patient declined due to just getting done working with OT.
[2022-08-26] MEDS: cefTRIAXone 2 GM in SODIUM CHLORIDE 0.9% IV 100 ML 200 ML IVPB (16:22)
[2022-08-26] MEDS: metroNIDAZOLE 250 MG TABLET 500 MG PO ×2 (16:22→23:58)
[2022-08-26 20:29] VITALS: PULSE 80
[2022-08-26] MEDS: HALOPERIDOL LACTATE 5 MG/ML VIAL IM (20:31)
[2022-08-26 20:37] VITALS: BP 135/71; PULSE 69; RESP 16; TEMP 36.9; O2SAT 93
[2022-08-27 05:39] LABS: Basophils Percent Auto 0.3 % (0.2-1.2); Eosinophils Absolute Auto 0.3 K/mm3 (0-0.3); Eosinophils Percent Auto 2.2 % (0-4.4); Hemoglobin 12.9 g/dL (12.0-15.0); Immature Granulocyte Absolute 0.23 K/mm3 (0.00-0.031); Immature Granulocyte Percent A 1.8 % (0-0.5); Lymphocytes Absolute Auto 0.84 K/mm3 (0.9-3.2); Lymphocytes Percent Auto 6.5 % (18.3-44.2); Mean Corpuscular HGB Conc 30.7 g/dl (32-36); Mean Corpuscular Hemoglobin 31.7 pg (26-34); Mean Corpuscular Volume 103.2 fl (80-100); Mean Platelet Volume 10.2 fl (7.4-10.4); Monocytes Absolute Auto 0.5 K/mm3 (0.1-0.6); Monocytes Percent Auto 4.2 % (2.6-8.5); Neutrophils Absolute Auto 10.9 K/mm3 (1.3-6.7); Platelet Count Result 194 k/mm3 (150-375); Red Blood Count 4.07 M/mm3 (4.2-5.4); White Blood Count 12.9 K/mm3 (4.5-10.0)
[2022-08-27 05:56] LABS: Anion Gap 8 mmol/L (8-16); Blood Urea Nitrogen 19 mg/dL (7-17); Calcium 8.5 mg/dL (8.4-10.2); Carbon Dioxide 27 mmol/L (22-30); Chloride 109 mmol/L (98-107); Estimated CRCL calculation 54 ml/min; Estimated Glomerular Filt Rate > 60; Glucose 103 mg/dL (65-110); Potassium 3.6 mmol/L (3.4-5.0); Sodium 144 mmol/L (137-145)
[2022-08-27 06:00] VITALS: BP 185/90; PULSE 69; RESP 24; TEMP 37.1; O2SAT 96
[2022-08-27] MEDS: hydrALAZINE HCL 20 MG/ML VIAL 10 MG IV PUSH (06:41)
[2022-08-27] MEDS: metroNIDAZOLE 250 MG TABLET 500 MG PO ×3 (06:42→21:15)
[2022-08-27 07:12] LABS: Procalcitonin 0.2 ng/mL
--- NOTE | 2022-08-27 07:53 | PM.IMPN ---
Progress Note: A&P Assessment and Plan (1) Cellulitis of arm, left: Code(s): L03.114 - Cellulitis of left upper limb Status: Acute Assessment and Plan: Significant cellulitis to the left arm. No necrosis. -No blood clot noted on ultrasound -08/26 CT left arm with diffuse cellulitis, but no apparent joint effusion or abscess. -cefazolin increased to 2 grams Q8 hours 08/25 but no significant improvement. Stop Cefazolin. -Started Rocephin 2 gram Q24 hours and metronidazole 500 mg PO Q8 hours, 08/26 -Continue Vancomycin IV pharmacy to dose. -trend CBC. -Afebrile. -Elevate extremity. -Apply ice for pain and swelling. -PRN analgesics -triple antibiotic ointment to all other abrasions -08/27 Rocephin and metronidazole day 2, vancomycin IV day 3 with vanc trough subtherapeutic 7.8. Patient does show some and improvement regarding redness progression and swelling. Continue IV antibiotics for another 24-48 hours and transition to oral antibiotics to complete a total of 14 day course. WBC 12 and improved from yesterday. Repeat CBC in a.m. and check CRP. Procalcitonin 0.2 today (2) Parkinson's disease: Code(s): G20 - Parkinson's disease Status: Chronic Assessment and Plan: Continue sinemet (3) Thoracic aortic aneurysm: Code(s): I71.20 - Thoracic aortic aneurysm, without rupture, unspecified Status: Chronic Assessment and Plan: New diagnosis according to daughter -f/u with vascular sx -size discussed with her daughter, no need for immediate intervention due to size (4) Recurrent falls: Code(s): R29.6 - Repeated falls Status: Acute Assessment and Plan: PT/OT evaluation -[place] now [place], may need rehab/SNF/higher level care -change remeron to HS -stop oxybutynin (5) Leukocytosis: Qualifiers: Leukocytosis type: bandemia Qualified Code(s): D72.825 - Bandemia Code(s): D72.829 - Elevated white blood cell count, unspecified Status: Acute Assessment and Plan: Likely due to cellulitis and UA suggests infection. -monitor trends -continue antibiotics as above - as above leukocytosis is trending down (6) Pyuria: Code(s): R82.81 - Pyuria Status: Acute Assessment and Plan: Urine culture >100,000 CFU e.coli pansensitive -Treated with cefazolin started 08/23, changed to Rocephin 08/26 which both cover the urine. patient should receive adequate course to cover UTI (7) Dyspnea: Code(s): R06.00 - Dyspnea, unspecified Status: Acute Assessment and Plan: patient complains of shortness of breath while sitting up in the chair today. Respirations noted to be shallow and labored 24 breaths per minute. Chest x-ray obtained and demonstrates atelectasis, but no consolidation or effusion noted Nursing notified to push incentive spirometer that has already been ordered. Atelectasis likely secondary to right rib fractures and hospitalization. Supplemental oxygen needed at this time (8) Closed rib fracture: Qualifiers: Encounter type: initial encounter Laterality: right Rib fracture type: multiple ribs Qualified Code(s): S22.41XA - Multiple fractures of ribs, right side, initial encounter for closed fracture Code(s): S22.39XA - Fracture of one rib, unspecified side, initial encounter for closed fracture Status: Acute Assessment and Plan: upon admission imaging did demonstrate anterior lateral right 2nd through 4th rib fractures. Continue incentive spirometer as above for atelectasis Continue pain control with p.r.n. medications. Lidocaine patches were ordered for right ribs daily Plan CODE STATUS: DNR Disposition: Inpatient Discharge destination: SNF Time Spent With Patient Time with patient: 25 - 35 minutes Subjective Date/time seen: 08/27/22 07:53 Patient found sitting up in a chair. She does report feeling somewhat short of breath that appe
[2022-08-27] MEDS: CARBIDOPA/LEVODOPA 25/250 MG TABLET 2 TABLET PO ×4 (08:42→21:14)
[2022-08-27 08:43] VITALS: PULSE 80
[2022-08-27] MEDS: buPROPion HCL SR (12 HR) 150 MG TAB PO (08:43)
[2022-08-27] MEDS: atenoloL 25 MG TABLET PO (08:43)
[2022-08-27] MEDS: lisinopriL 20 MG TABLET PO (08:43)
[2022-08-27] MEDS: DONEPEZIL HCL 5 MG TABLET PO (08:43)
[2022-08-27] MEDS: FAMOTIDINE 10 MG TABLET PO ×2 (08:43→21:14)
[2022-08-27] MEDS: DOCUSATE SODIUM 100 MG CAPSULE PO ×2 (08:43→16:55)
[2022-08-27] MEDS: SERTRALINE HCL 50 MG TABLET 100 MG PO (08:43)
[2022-08-27] MEDS: PRAVASTATIN SODIUM 20 MG TABLET 80 MG PO (08:43)
[2022-08-27] MEDS: MEMANTINE HCL XR 28 MG CAP PO (08:43)
[2022-08-27] MEDS: ARTIFICIAL TEARS OPHTH SOLN 15 ML BOTTLE 1 DROP EACH EYE ×3 (08:44→16:56)
[2022-08-27] MEDS: NEOMYCIN/POLYMYXIN/BACITRACIN OINTMENT 15 GM TUBE 1 APPLIC TOPICAL (08:44)
[2022-08-27] MEDS: CELECOXIB 200 MG CAPSULE PO (08:44)
[2022-08-27] MEDS: HEPARIN SODIUM 5,000 UNITS/ML VIAL 5000 UNITS SUB-Q ×2 (08:44→21:13)
[2022-08-27 10:40] LABS: Vancomycin Trough 7.8 ug/mL (10.0-20.0)
[2022-08-27 14:31] VITALS: BP 90/40; PULSE 66; RESP 18; TEMP 36.5; O2SAT 96
[2022-08-27] MEDS: SODIUM CHLORIDE 0.9% IV 250 ML 125 ML IV CONT (14:39)
[2022-08-27 15:48] VITALS: BP 120/70
[2022-08-27] MEDS: cefTRIAXone 2 GM in SODIUM CHLORIDE 0.9% IV 100 ML 200 ML IVPB (16:14)
[2022-08-27 18:23] LABS: Glucose Point of Care 98 mg/dl (65-105)
[2022-08-27 20:30] VITALS: BP 105/50; PULSE 73; RESP 16; TEMP 36.6; O2SAT 96
[2022-08-27] MEDS: ACETAMINOPHEN 325 MG TABLET 650 MG PO (21:14)
[2022-08-27] MEDS: MIRTAZAPINE 30 MG TABLET PO (21:15)
[2022-08-27] MEDS: SENNA/DOCUSATE SODIUM TABLET 1 TAB PO (21:16)
[2022-08-27 21:17] VITALS: PULSE 80
[2022-08-28] VITALS (7 sets, daily range): BP systolic 132–194; BP diastolic 71–97; PULSE 68–76; RESP 16–20; TEMP 36.4–36.7; O2SAT 93–95
[2022-08-28] MEDS: metroNIDAZOLE 250 MG TABLET 500 MG PO ×3 (06:32→22:35)
[2022-08-28 06:43] LABS: Basophils Absolute Auto 0.1 K/mm3 (0.0-0.1); Basophils Percent Auto 0.9 % (0.2-1.2); Eosinophils Absolute Auto 0.3 K/mm3 (0-0.3); Eosinophils Percent Auto 4.4 % (0-4.4); Hematocrit 38.4 % (37.0-47.0); Hemoglobin 12.1 g/dL (12.0-15.0); Immature Granulocyte Absolute 0.29 K/mm3 (0.00-0.031); Immature Granulocyte Percent A 4.2 % (0-0.5); Lymphocytes Absolute Auto 1.22 K/mm3 (0.9-3.2); Lymphocytes Percent Auto 17.7 % (18.3-44.2); Mean Corpuscular HGB Conc 31.5 g/dl (32-36); Mean Corpuscular Hemoglobin 31.6 pg (26-34); Mean Corpuscular Volume 100.3 fl (80-100); Mean Platelet Volume 10.4 fl (7.4-10.4); Monocytes Absolute Auto 0.4 K/mm3 (0.1-0.6); Monocytes Percent Auto 5.4 % (2.6-8.5); Neutrophils Absolute Auto 4.7 K/mm3 (1.3-6.7); Neutrophils Percent Auto 67.4 % (45.5-73.1); Platelet Count Result 188 k/mm3 (150-375); Red Blood Count 3.83 M/mm3 (4.2-5.4); Red Cell Distribution Width 14.3 % (11.5-14.5); White Blood Count 6.9 K/mm3 (4.5-10.0)
[2022-08-28 07:13] LABS: CRP 11.4 mg/dL (<1.0)
[2022-08-28] MEDS: SERTRALINE HCL 50 MG TABLET 100 MG PO (08:24)
[2022-08-28] MEDS: CELECOXIB 200 MG CAPSULE PO (08:24)
[2022-08-28] MEDS: atenoloL 25 MG TABLET PO ×2 (08:24→20:44)
[2022-08-28] MEDS: PRAVASTATIN SODIUM 20 MG TABLET 80 MG PO (08:24)
[2022-08-28] MEDS: ARTIFICIAL TEARS OPHTH SOLN 15 ML BOTTLE 1 DROP EACH EYE ×3 (08:25→17:18)
[2022-08-28] MEDS: NEOMYCIN/POLYMYXIN/BACITRACIN OINTMENT 15 GM TUBE 1 APPLIC TOPICAL (08:25)
[2022-08-28] MEDS: HEPARIN SODIUM 5,000 UNITS/ML VIAL 5000 UNITS SUB-Q ×2 (08:25→20:45)
[2022-08-28] MEDS: buPROPion HCL SR (12 HR) 150 MG TAB PO (08:25)
[2022-08-28] MEDS: FAMOTIDINE 10 MG TABLET PO ×2 (08:25→20:44)
[2022-08-28] MEDS: LIDOCAINE 5% PATCH 2 PATCH TRANSDERM (08:25)
[2022-08-28] MEDS: DOCUSATE SODIUM 100 MG CAPSULE PO ×2 (08:25→17:18)
[2022-08-28] MEDS: DONEPEZIL HCL 5 MG TABLET PO (08:25)
[2022-08-28] MEDS: lisinopriL 20 MG TABLET PO (08:25)
[2022-08-28] MEDS: CARBIDOPA/LEVODOPA 25/250 MG TABLET 2 TABLET PO ×4 (08:25→20:45)
[2022-08-28] MEDS: MEMANTINE HCL XR 28 MG CAP PO (08:25)
[2022-08-28] MEDS: cefTRIAXone 2 GM in SODIUM CHLORIDE 0.9% IV 100 ML 200 ML IVPB (14:17)
[2022-08-28] MEDS: OXYMETAZOLINE HCL 0.05% NAS 15 ML BTL (*BKC) 2 SPRAY NASAL (14:17)
--- NOTE | 2022-08-28 16:25 | PM.IMPN ---
Progress Note: A&P Assessment and Plan (1) Cellulitis of arm, left: Code(s): L03.114 - Cellulitis of left upper limb Status: Acute Assessment and Plan: Significant cellulitis to the left arm. No necrosis. -No blood clot noted on ultrasound -08/26 CT left arm with diffuse cellulitis, but no apparent joint effusion or abscess. -cefazolin increased to 2 grams Q8 hours 08/25 but no significant improvement. Stop Cefazolin. -Started Rocephin 2 gram Q24 hours and metronidazole 500 mg PO Q8 hours, 08/26 -Continue Vancomycin IV pharmacy to dose. -trend CBC. -Afebrile. -Elevate extremity. -Apply ice for pain and swelling. -PRN analgesics -triple antibiotic ointment to all other abrasions -08/27 Rocephin and metronidazole day 2, vancomycin IV day 3 with vanc trough subtherapeutic 7.8. Patient does show some and improvement regarding redness progression and swelling. Continue IV antibiotics for another 24-48 hours and transition to oral antibiotics to complete a total of 14 day course. WBC 12 and improved from yesterday. Repeat CBC in a.m. and check CRP. Procalcitonin 0.2 today -08/28 patient is continuing vancomycin and Rocephin. Patient does not have any pain and erythema demarcations have seemed to regress for marker line on the arm. White blood cell count 6 point and CRP 11.2 and trending down. Plan to order ultrasound of the left arm to rule out abscess. Patient may be discharged once abscess ruled out and continuing to improve. Will reassess in the morning. (2) Parkinson's disease: Code(s): G20 - Parkinson's disease Status: Chronic Assessment and Plan: Continue sinemet (3) Thoracic aortic aneurysm: Code(s): I71.20 - Thoracic aortic aneurysm, without rupture, unspecified Status: Chronic Assessment and Plan: New diagnosis according to daughter -f/u with vascular sx -size discussed with her daughter, no need for immediate intervention due to size (4) Recurrent falls: Code(s): R29.6 - Repeated falls Status: Acute Assessment and Plan: PT/OT evaluation -pt now [place], may need rehab/SNF/higher level care -change remeron to HS -stop oxybutynin (5) Leukocytosis: Qualifiers: Leukocytosis type: bandemia Qualified Code(s): D72.825 - Bandemia Code(s): D72.829 - Elevated white blood cell count, unspecified Status: Acute Assessment and Plan: Likely due to cellulitis and UA suggests infection. -monitor trends -continue antibiotics as above - as above leukocytosis is trending down (6) Pyuria: Code(s): R82.81 - Pyuria Status: Acute Assessment and Plan: Urine culture >100,000 CFU e.coli pansensitive -Treated with cefazolin started 08/23, changed to Rocephin 08/26 which both cover the urine. patient should receive adequate course to cover UTI (7) Dyspnea: Code(s): R06.00 - Dyspnea, unspecified Status: Acute Assessment and Plan: patient complains of shortness of breath while sitting up in the chair today. Respirations noted to be shallow and labored 24 breaths per minute. Chest x-ray obtained and demonstrates atelectasis, but no consolidation or effusion noted Nursing notified to push incentive spirometer that has already been ordered. Atelectasis likely secondary to right rib fractures and hospitalization. Supplemental oxygen needed at this time (8) Closed rib fracture: Qualifiers: Encounter type: initial encounter Laterality: right Rib fracture type: multiple ribs Qualified Code(s): S22.41XA - Multiple fractures of ribs, right side, initial encounter for closed fracture Code(s): S22.39XA - Fracture of one rib, unspecified side, initial encounter for closed fracture Status: Acute Assessment and Plan: upon admission imaging did demonstrate anterior lateral right 2nd through 4th rib fractures. Continue incentive spirometer as above for ate
[2022-08-28] MEDS: MIRTAZAPINE 30 MG TABLET PO (20:44)
[2022-08-28] MEDS: SENNA/DOCUSATE SODIUM TABLET 1 TAB PO (20:48)
[2022-08-29 05:33] LABS: Hemoglobin 12.3 g/dL (12.0-15.0); Mean Corpuscular HGB Conc 31.5 g/dl (32-36); Mean Corpuscular Hemoglobin 32.1 pg (26-34); Mean Corpuscular Volume 101.8 fl (80-100); Mean Platelet Volume 10.1 fl (7.4-10.4); Platelet Count Result 207 k/mm3 (150-375); Red Blood Count 3.83 M/mm3 (4.2-5.4); Red Cell Distribution Width 14.3 % (11.5-14.5)
[2022-08-29] MEDS: metroNIDAZOLE 250 MG TABLET 500 MG PO ×2 (05:45→13:45)
[2022-08-29 05:49] LABS: Alanine Aminotransferase 9 U/L (6-35); Albumin Level 3.1 g/dL (3.5-5.1); Alkaline Phosphatase 111 U/L (38-126); Anion Gap 5 mmol/L (8-16); Aspartate Amino Transferase 23 U/L (14-36); Bilirubin,Total 0.6 mg/dL (0.2-1.3); Blood Urea Nitrogen 31 mg/dL (7-17); CRP 6.2 mg/dL (<1.0); Calcium 8.2 mg/dL (8.4-10.2); Carbon Dioxide 30 mmol/L (22-30); Chloride 104 mmol/L (98-107); Estimated CRCL calculation 47 ml/min; Estimated Glomerular Filt Rate > 60; Glucose 87 mg/dL (65-110); Sodium 139 mmol/L (137-145)
[2022-08-29 07:02] VITALS: PULSE 78
[2022-08-29] MEDS: atenoloL 25 MG TABLET PO (07:02)
[2022-08-29] MEDS: lisinopriL 20 MG TABLET PO (07:02)
[2022-08-29] MEDS: PRAVASTATIN SODIUM 20 MG TABLET 80 MG PO (09:01)
[2022-08-29] MEDS: SERTRALINE HCL 50 MG TABLET 100 MG PO (09:02)
[2022-08-29] MEDS: CARBIDOPA/LEVODOPA 25/250 MG TABLET 2 TABLET PO ×2 (09:02→13:44)
[2022-08-29] MEDS: buPROPion HCL SR (12 HR) 150 MG TAB PO (09:03)
[2022-08-29] MEDS: DOCUSATE SODIUM 100 MG CAPSULE PO (09:03)
[2022-08-29] MEDS: DONEPEZIL HCL 5 MG TABLET PO (09:03)
[2022-08-29] MEDS: ARTIFICIAL TEARS OPHTH SOLN 15 ML BOTTLE 1 DROP EACH EYE ×2 (09:03→13:44)
[2022-08-29] MEDS: CELECOXIB 200 MG CAPSULE PO (09:03)
[2022-08-29] MEDS: FAMOTIDINE 10 MG TABLET PO (09:03)
[2022-08-29] MEDS: MEMANTINE HCL XR 28 MG CAP PO (09:03)
[2022-08-29] MEDS: LIDOCAINE 5% PATCH 2 PATCH TRANSDERM (09:04)
[2022-08-29] MEDS: HEPARIN SODIUM 5,000 UNITS/ML VIAL 5000 UNITS SUB-Q (09:04)
[2022-08-29] MEDS: NEOMYCIN/POLYMYXIN/BACITRACIN OINTMENT 15 GM TUBE 1 APPLIC TOPICAL (09:05)
--- NOTE | 2022-08-29 13:18 | PM.DS ---
DS: Admitting Diagnosis Discharge Date 08/29/22 Admitting Diagnosis Cellulitis, resistant UTI DS: Discharge Diagnosis Discharge Diagnosis (1) Cellulitis of arm, left: Code(s): L03.114 - Cellulitis of left upper limb Status: Acute (2) Parkinson's disease: Code(s): G20 - Parkinson's disease Status: Chronic (3) Thoracic aortic aneurysm: Code(s): I71.20 - Thoracic aortic aneurysm, without rupture, unspecified Status: Chronic (4) Recurrent falls: Code(s): R29.6 - Repeated falls Status: Acute (5) Leukocytosis: Qualifiers: Leukocytosis type: bandemia Qualified Code(s): D72.825 - Bandemia Code(s): D72.829 - Elevated white blood cell count, unspecified Status: Acute (6) Pyuria: Code(s): R82.81 - Pyuria Status: Acute (7) Dyspnea: Code(s): R06.00 - Dyspnea, unspecified Status: Acute (8) Closed rib fracture: Qualifiers: Encounter type: initial encounter Laterality: right Rib fracture type: multiple ribs Qualified Code(s): S22.41XA - Multiple fractures of ribs, right side, initial encounter for closed fracture Code(s): S22.39XA - Fracture of one rib, unspecified side, initial encounter for closed fracture Status: Acute Plan CODE STATUS: DNR Disposition: Inpatient Discharge destination: SNF DS: Summary Hospital Course Reason for hospitalization: Cellulitis of left arm, UTI Hospital Course: 82-year-old female with a history of Parkinson's disease and thoracic aorta aneurysm measuring 4.5 cm. Patient presented to the ER on 08/23/2022 due to left arm swelling and redness. Patient had reported that this is been going on for 5 days prior. Patient did have superficial abrasion in the area of redness. She does not recall if she had injury to the arm or not. Patient has been on recent antibiotic for UTI but unsure which antibiotic. Urine culture greater than 100,000 CFU E coli pansensitive. Chest x-ray revealed mild bibasilar atelectasis versus less likely pneumonia and cardiomegaly. 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 Elbow x-ray negative left elbow radiographs. CT head no acute fracture or intracranial process. Venous Doppler no evidence of DVT. CT chest 4.5 ascending thoracic aneurysm. Daughter not interested in immediate intervention for thoracic aneurysm. [place] [address] and CRP of 20.4. patient negative for flu and COVID. Patient was started on cefazolin and blood cultures pending. Cefazolin covered both for cellulitis and UTI. Cefazolin discontinued after no noticeable improvement of 2 days on antibiotic. Patient was started on vancomycin, Rocephin and metronidazole. White blood cell count and CRP trended down over patient's stay. Cellulitis improved significantly. Patient underwent ultrasound of soft tissue to rule out abscess of the arm which was negative. Discussed this case wi ID pharmacist and he recommended tx with doxy x 14 days and cefdinir x7 days Patient being sent home with doxy and cefdinir. Time Spent with Patient Time attestation: Total time spent providing and/or coordinating discharge services: Exam Narrative: GENERAL: Comfortable, no acute distress HENMT: moist mucous membranes EYES: EOM intact b/l NECK: no lymphadenopathy RESPIRATORY: clear to auscultation CARDIO: RRR GI: soft, nontender, bowel sounds present SKIN: no rashes EXTREMITIES: Left mid lower forearm to mid upper arm with mild edema, erythema within marked borders. Markedly improved from yesterday. No tenderness to palpation. No discharge noted on the arm. Scabbed abrasion over olecranon on and forearm. DS: Data Data Completed and Pending Labs on day of discharge: Labs from last 24 hours 08/29/22 08/29/22 05:21 05:21 WBC 7.0 RBC 3.83 L Hgb 12.3 Hct 39.0 MCV 101.8 H MCH 32.1 MCHC 31.
[2022-08-29] MEDS: cefTRIAXone 2 GM in SODIUM CHLORIDE 0.9% IV 100 ML 200 ML IVPB (13:44)
[2022-08-29 14:00] VITALS: BP 101/42; PULSE 66; RESP 16; TEMP 36.6; O2SAT 95
[2022-08-29 14:34] LABS: EDCOVIDSCREEN Negative (Negative)
== END 2022-08-29 15:30 | DRG 603 ==
LOC: ANHED 20:44 → ANH3MED 23:02
PROVIDERS: Internal Medicine Critical Care Medicine; Nurse Practitioner Family; Physician Assistant; Admitting Provider Internal Medicine; Emergency Provider Emergency Medicine; PCP Family Medicine; Visit Provider Student in an Organized Health Care Education/Training Program
DX: L03.114 Cellulitis of left upper limb (principal); N39.0 Urinary tract infection, site not specified; S22.41XA Multiple fractures of ribs, right side, initial encounter for closed fracture; J98.11 Atelectasis; B96.20 Unspecified Escherichia coli [E. coli] as the cause of diseases classified elsewhere; G20 Parkinson's disease; F02.80 Dementia in other diseases classified elsewhere, unspecified severity, without behavioral disturbance, psychotic disturbance, mood disturbance, and anxiety; I71.20 Thoracic aortic aneurysm, without rupture, unspecified; R29.6 Repeated falls; D72.829 Elevated white blood cell count, unspecified; Z66 Do not resuscitate; N18.9 Chronic kidney disease, unspecified; E78.5 Hyperlipidemia, unspecified; K59.00 Constipation, unspecified; X58.XXXA Exposure to other specified factors, initial encounter; Z20.822 Contact with and (suspected) exposure to COVID-19
CPT/HCPCS: 36415; 51701; 70450; 71045; 71250; 73030; 73080; 73201; 76882; 80048; 80053; 80202; 81001; 82565; 82948; 83605; 84145; 84520; 85025; 85027; 85610; 85652; 85730; 86140; 87040; 87077; 87086; 87186; 87426; 87636; 93005; 93971; 96361; 96365; 96366; 96367; 96375; 97110; 97161; 97166; 97530; 97535; 99285; A9270; C9803; G0378; G0379; J0131; J0360; J0690; J0696; J1630; J1644; J3370; J7040; J7050; Q9967

== ENCOUNTER 2022-09-15 21:56 | Emergency (ER) | payer MEDICARE, SELFPAY ==
[2022-09-15] VITALS (8 sets, daily range): BP systolic 130–135; BP diastolic 72–76; PULSE 67; RESP 20; O2SAT 95–100
--- NOTE | ~2022-09-15 | CT_ITS ---
EXAMINATION: CT facial & cervical spine wo DATE: 09/16/2022 00:38 INDICATION: Head injury. TECHNIQUE: Computed tomography (CT) of the maxillofacial region and cervical spine was performed with out intravenous contrast. Automated exposure control and iterative reconstruction technique were empl oyed. The dose-length product was 400.65 mGy-cm. COMPARISON: Head CT 04/05/2015 FINDINGS: MAXILLOFACIAL CT: There is right frontal scalp soft tissue swelling. There is mild mucosal thickening in the paranasal sinuses. There is leftward deviation of the nasal septum. There is a fracture of right nasal bone. Th e mastoid air cells are normal. There are likely changes of left ocular lens replacement surgery. CERVICAL SPINE CT: C1 ring is ununited anteriorly and posteriorly, which is chronic. There is 2 mm anterolisthesis of C4 on C5. There is kyphosis of lower cervical spine. There is 16 degrees levoscoliosis of cervical spin e. Vertebral body heights are normal. There is mildly decreased disc height at C3-C4 and severely dec reased disc height from C4-C5 through C6-C7. The following disc levels are specifically discussed: C2-C3: There is no uncovertebral joint osteoarthritis. There is severe right and mild left facet join t osteoarthritis. There is mild right neural foraminal stenosis. There is no central canal stenosis. C3-C4: There is mild bilateral uncovertebral joint osteoarthritis. There is moderate right and severe left facet joint osteoarthritis. There is mild left neural foraminal stenosis. There is no central c anal stenosis. C4-C5: There is severe right and moderate left uncovertebral joint osteoarthritis. There is severe ri ght and mild left facet joint osteoarthritis. There is mild right neural foraminal stenosis. There is mild central canal stenosis. C5-C6: There is severe bilateral uncovertebral joint osteoarthritis. There is severe bilateral facet joint osteoarthritis. There is mild bilateral neural foraminal stenosis. There is mild central canal stenosis. C6-C7: There is severe bilateral uncovertebral joint osteoarthritis. There is mild right and severe l eft facet joint osteoarthritis. There is mild right and moderate left neural foraminal stenosis. Ther e is mild central canal stenosis. C7-T1: There is ankylosis of the uncovertebral joints with mild hypertrophy. There is ankylosis of le ft facet joint with mild hypertrophy. There is moderate left neural foraminal stenosis. There is no c entral canal stenosis. IMPRESSION: 1. Age-indeterminate fracture deformity of right nasal bone. 2. Severe cervical spondylosis. 3. Cervical levoscoliosis. Reviewed, dictated and finalized at location A. Y FEED SALES CONSULTANT
--- NOTE | ~2022-09-15 | CT_ITS ---
EXAMINATION: CT brain wo con DATE: 09/16/2022 00:38 INDICATION: Head injury. TECHNIQUE: Computed tomography (CT) of the head was performed without intravenous contrast. The mA wa s adjusted according to patient size. Iterative reconstruction technique was employed. The dose-lengt h product was 605.33 mGy-cm. COMPARISON: Head CT 08/23/2022 FINDINGS: There are scattered areas of low attenuation in the cerebral white matter. There is no intr acranial hemorrhage, acute infarction, or abnormal intracranial mass lesion. The ventricles are samantha l in size. The paranasal sinuses are clear. There are likely changes of left ocular lens replacement surgery. The mastoid air cells are normal. There is frontal scalp soft tissue swelling. IMPRESSION: 1. Stable mild nonspecific cerebral white matter disease, which likely represents chronic small vesse l ischemic disease. Reviewed, dictated and finalized at location A. LYST OPERATOR GASOLINE IMPRESSION: 1. Stable mild nonspecific cerebral white matter disease, which likely represen ts chronic small vessel ischemic disease.
--- NOTE | ~2022-09-15 | XR_ITS ---
EXAMINATION: XR chest 1V portable DATE: 09/15/2022 23:22 INDICATION: Fall. TECHNIQUE: A single frontal view of the chest was obtained. COMPARISON: Chest single view 08/27/2022, chest CT 08/23/2022 FINDINGS: There is mild atelectasis in the lower lung zones. No pleural effusion or pneumothorax. The heart size is normal. Calcified hilar and mediastinal lymph nodes are consistent with old granulomat ous disease. There is advanced right glenohumeral joint osteoarthritis. There is anterior dislocation of right humeral head with respect to glenoid. IMPRESSION: 1. Mild atelectasis in the lower lung zones. 2. Anterior right shoulder dislocation and advanced right glenohumeral joint osteoarthritis. Reviewed, dictated and finalized at location A. UNITY LIVING INSTRUCTOR IMPRESSION: 1. Mild atelectasis in the lower lung zones. 2. Anterior right shoulder dislocation and advanced right glenohumeral joint os teoarthritis.
--- NOTE | ~2022-09-15 | XR_ITS ---
EXAMINATION: XR pelvis 1-2V DATE: 09/15/2022 23:23 INDICATION: Chronic right hip pain. TECHNIQUE: An anteroposterior view of the pelvis was obtained. COMPARISON: None. FINDINGS: There is lumbar levoscoliosis and severe spondylosis. No fracture. There is advanced right hip osteoarthritis with loose bodies. There is moderate left hip osteoarthritis. IMPRESSION: 1. Advanced right hip osteoarthritis with loose bodies. 2. Moderate left hip osteoarthritis. Reviewed, dictated and finalized at location A. IRON OPERATOR
[2022-09-15 23:40] LABS: Basophils Percent Auto 0.3 % (0.2-1.2); Eosinophils Absolute Auto 0.3 K/mm3 (0-0.3); Eosinophils Percent Auto 4.7 % (0-4.4); Hematocrit 42.8 % (37.0-47.0); Immature Granulocyte Absolute 0.02 K/mm3 (0.00-0.031); Immature Granulocyte Percent A 0.3 % (0-0.5); Lymphocytes Absolute Auto 1.21 K/mm3 (0.9-3.2); Lymphocytes Percent Auto 21.1 % (18.3-44.2); Mean Corpuscular HGB Conc 30.4 g/dl (32-36); Mean Corpuscular Hemoglobin 32.1 pg (26-34); Mean Corpuscular Volume 105.7 fl (80-100); Mean Platelet Volume 11.3 fl (7.4-10.4); Monocytes Absolute Auto 0.6 K/mm3 (0.1-0.6); Monocytes Percent Auto 10.5 % (2.6-8.5); Neutrophils Absolute Auto 3.6 K/mm3 (1.3-6.7); Neutrophils Percent Auto 63.1 % (45.5-73.1); Platelet Count Result 214 k/mm3 (150-375); Red Blood Count 4.05 M/mm3 (4.2-5.4); Red Cell Distribution Width 14.6 % (11.5-14.5); White Blood Count 5.7 K/mm3 (4.5-10.0)
[2022-09-15 23:54] LABS: Add Urine Microscopic? YES; Appearance Urine Clear (Clear); Bilirubin Urine Negative (Negative); Blood Urine Negative (Negative); Color Urine Yellow (Yellow); Glucose Urine UA Negative (Negative); Ketones Urine Trace mg/dL (Negative); Leukocyte Esterase Ur Negative LEU/UL (Negative); Nitrate Urine Negative (Negative); Protein Urine Negative (Negative); Specific Grav Ur 1.015 (1.001-1.035); Urobilinogen Urine 0.2 mg/dL (<2.0); pH Urine 6.5 (5.0-9.0)
[2022-09-15 23:54] LABS: Anion Gap 6 mmol/L (8-16); Blood Urea Nitrogen 18 mg/dL (7-17); Calcium 8.7 mg/dL (8.4-10.2); Carbon Dioxide 27 mmol/L (22-30); Chloride 102 mmol/L (98-107); Estimated CRCL calculation 43 ml/min; Estimated Glomerular Filt Rate > 60; Glucose 128 mg/dL (65-110); Magnesium 1.8 mg/dL (1.6-2.3); Potassium 3.8 mmol/L (3.4-5.0); Sodium 135 mmol/L (137-145)
[2022-09-15 23:58] LABS: RBC Urine 0-2 /hpf (0-2); Squamous Epithelial Cell Urine Rare /hpf (Few); WBC Urine 0-3 /hpf
[2022-09-16] VITALS (10 sets, daily range): PULSE 59–67; RESP 16–26; O2SAT 93–97
[2022-09-16 00:05] LABS: Troponin I < 0.012 ng/mL (0.000-0.034)
[2022-09-16] MEDS: TETANUS,DIPHTHERIA,AC PERTUSSIS ADULT (0.5 ML) BOOSTRIX IM (00:06)
[2022-09-16] MEDS: SODIUM CHLORIDE 0.9% IV 1,000 ML 999 ML IV CONT (00:07)
[2022-09-16] MEDS: HYDROcodone/acetaminophen (*CRX) 5-325 MG TABLET 1 TAB PO (00:07)
--- NOTE | 2022-09-16 00:14 | ED.GENADULT ---
HPI - General Adult General Chief complaint: Fall Stated complaint: Fall Time Seen by Provider: 09/15/22 22:03 History of Present Illness HPI narrative: This is an 82-year-old female presenting ED after a fall. Patient has Parkinson's dementia and lives at [facility] where she is undergoing rehab. Patient says that she was lying down in bed and then got up and made 2 steps before she fell forward and struck her forehead. She denies blood thinners or loss of consciousness. She has been ambulatory since the incident. She denies any chest pain palpitations or shortness of breath before she fell. Patient has history of frequent falls. She is not supposed to get out of bed unassisted. Related Data Home Medications Medication Instructions Recorded Confirmed donepezil 5 mg tablet 5 mg PO DAILY 02/04/20 08/24/22 pravastatin 40 mg tablet 80 mg PO DAILY 02/04/20 08/29/22 artificial 1 drp EACH EYE TID 08/24/22 08/29/22 tears([id number]) 0.1 %-0.3 %-0.2 % eye drops (GenTeal Tears Moderate) atenolol 25 mg tablet 25 mg PO BID 08/24/22 08/29/22 bupropion HCl 150 mg tablet,12 hr 150 mg PO QAM 08/24/22 08/29/22 sustained-release carbidopa 25 mg-levodopa 250 mg 2 tablet PO QID 08/24/22 08/29/22 tablet celecoxib 200 mg capsule 200 mg PO DAILY 08/24/22 08/29/22 cyanocobalamin (vitamin B-12) See Rx Instructions .Route .COMPLEX 08/24/22 08/29/22 1,000 mcg/mL injection syringe docusate sodium 100 mg capsule 100 mg PO BID 08/24/22 08/29/22 fluticasone propionate 50 2 spray intranasal BID PRN 08/24/22 08/29/22 mcg/actuation nasal Congestion spray,suspension memantine 28 mg capsule 28 mg PO DAILY 08/24/22 08/29/22 sprinkle,extended release 24hr mirtazapine 30 mg tablet 30 mg PO DAILY 08/24/22 08/29/22 oxybutynin chloride 5 mg 5 mg PO DAILY 12/17/22 12/22/22 tablet,extended release 24 hr oxymetazoline 0.05 % nasal spray 2 spray intranasal Q12H PRN 08/24/22 08/29/22 Congestion polyethylene glycol 3350 17 gram 17 g PO DAILY PRN Constipation 08/24/22 08/29/22 oral powder packet sennosides 8.6 mg-docusate sodium 1 tab-cap PO HS 08/24/22 08/29/22 50 mg tablet (Stimulant Laxative Plus) sertraline 100 mg tablet 100 mg PO DAILY 08/24/22 08/29/22 Allergies Allergy/AdvReac Type Severity Reaction Status Date / Time nitrofurantoin Allergy Unknown Rash Verified 09/15/22 22:03 Fish Containing Products Allergy Unknown Verified 09/15/22 22:03 shrimp Allergy Unknown Verified 09/15/22 22:03 [facility] Past Medical History Medical History History of chronic kidney disease History of dementia History of hyperlipidemia History of Parkinson's disease Social History Social History Smoking status: Never smoker Alcohol intake: never Substance use: never Lack of Transportation: No Lack of Food: Never True Current Housing: I Have Housing Concerned About Future Housing: No Difficulty Paying Gas/Electric Bills: No Difficulty Paying for Meds: No Currently Unemployed: No Education: Associate Degree Difficulty w/ Childcare or Family Care: No Gender identity (if verbalized by the patient): Female Spiritual care concerns: No Exam Narrative: APPEARANCE: No apparent distress. Head: hematoma over the right forehead EYES: EOMI, pleural NOSE: Atraumatic NECK: Trachea midline RESPIRATORY: No increased rate of breathing, clear to auscultation bilaterally CARDIOVASCULAR: RRR, no peripheral edema ABDOMINAL: Non-distended no guarding or rebound MUSCULOSKELETAl: No obvious deformities, head to toe trauma assessment revealed no crepitus, pain Mata past for active range of motion extremity, bruising. NEURO: Alert. Moving 4/4 extremities SKIN:: hematoma over the forehead PSYCHIATRIC: Normal affect Course Vital Signs Vital signs: Vital Signs Pulse Rate 67 09/15/22
[2022-09-16 00:18] LABS: Influenza A QL RT-PCR Negative (Negative); Influenza B QL RT-PCR Negative (Negative); RSV RNA, RT-PCR Negative (Negative); SARS-CoV-2 RNA PCR Negative
== END 2022-09-16 05:17 ==
PROVIDERS: Emergency Provider Emergency Medicine; PCP Family Medicine
DX: S02.2XXA Fracture of nasal bones, initial encounter for closed fracture (principal); S40.812A Abrasion of left upper arm, initial encounter; S60.511A Abrasion of right hand, initial encounter; S00.81XA Abrasion of other part of head, initial encounter; M24.411 Recurrent dislocation, right shoulder; Z20.822 Contact with and (suspected) exposure to COVID-19; G20 Parkinson's disease; M16.0 Bilateral primary osteoarthritis of hip; M19.011 Primary osteoarthritis, right shoulder; R29.6 Repeated falls; Z23 Encounter for immunization; F02.80 Dementia in other diseases classified elsewhere, unspecified severity, without behavioral disturbance, psychotic disturbance, mood disturbance, and anxiety; N18.9 Chronic kidney disease, unspecified; I71.20 Thoracic aortic aneurysm, without rupture, unspecified; E78.5 Hyperlipidemia, unspecified; R90.82 White matter disease, unspecified; M47.812 Spondylosis without myelopathy or radiculopathy, cervical region; W18.39XA Other fall on same level, initial encounter
CPT/HCPCS: 36415; 51701; 70450; 70486; 71045; 72125; 72170; 80048; 81001; 83735; 84484; 85025; 87637; 90471; 90715; 96360; 99284; A9270; J7030

== ENCOUNTER 2022-11-09 21:09 | Emergency (ER) | payer MEDICARE, SELFPAY ==
--- NOTE | ~2022-11-09 | CT_ITS ---
EXAMINATION: CT lumbar spine wo con DATE: 11/10/2022 03:05 INDICATION: Low back pain. Fall. TECHNIQUE: Computed tomography (CT) of the lumbar spine was performed without intravenous contrast. A utomated exposure control and iterative reconstruction technique were employed. The dose-length produ ct was 457.54 mGy-cm. COMPARISON: None FINDINGS: There is a 13 mm hemorrhagic cyst in left kidney. There are cysts in the kidneys measuring up to 5.3 cm on the right. The bladder is markedly distended. There is 32 degrees levoscoliosis of th oracolumbar spine. There is 4 mm anterolisthesis of L4 on L5. There is severely decreased disc height from T11-T12 through L3-L4 and moderately decreased disc height at L4-L5. There is interbody fusion at L5-S1. The following disc levels are specifically discussed: L1-L2: The disc is bulging. There is moderate bilateral facet joint osteoarthritis. There is moderate right and mild left neural foraminal stenosis. There is mild central canal stenosis. L2-L3: The disc is bulging. There is severe right and moderate left facet joint osteoarthritis. There is moderate bilateral neural foraminal stenosis. There is mild central canal stenosis. L3-L4: The disc is bulging. There is severe bilateral facet joint osteoarthritis. There is mild right and moderate left neural foraminal stenosis. There is mild central canal stenosis. L4-L5: The disc is bulging. There is severe bilateral facet joint osteoarthritis. There is moderate b ilateral neural foraminal stenosis. There is mild central canal stenosis. L5-S1: There is severe bilateral facet joint osteoarthritis. There is mild bilateral neural foraminal stenosis. There is no central canal stenosis. IMPRESSION: 1. No fracture. 2. Severe lumbar spondylosis. 3. Thoracolumbar levoscoliosis. Reviewed, dictated and finalized at location A. ER TANK TENDER
--- NOTE | ~2022-11-09 | CT_ITS ---
EXAMINATION: CT brain wo con DATE: 11/10/2022 00:31 INDICATION: Head injury. TECHNIQUE: Computed tomography (CT) of the head was performed without intravenous contrast. The mA wa s adjusted according to patient size. Iterative reconstruction technique was employed. The dose-lengt h product was 681.00 mGy-cm. COMPARISON: Head CT 09/16/2022 FINDINGS: There are scattered areas of low attenuation in the cerebral white matter. There is no intr acranial hemorrhage, acute infarction, or abnormal intracranial mass lesion. The ventricles are samantha l in size. There is mild mucosal thickening in the paranasal sinuses. There are likely changes of lef t ocular lens replacement surgery. The mastoid air cells are normal. There is left parietal scalp sof t tissue swelling with soft tissue gas. IMPRESSION: 1. Stable mild nonspecific cerebral white matter disease, which likely represents chronic small vesse l ischemic disease. Reviewed, dictated and finalized at location A. LINE REPRESENTATIVES IMPRESSION: 1. Stable mild nonspecific cerebral white matter disease, which likely represen ts chronic small vessel ischemic disease.
--- NOTE | ~2022-11-09 | CT_ITS ---
EXAMINATION: CT cervical spine wo con DATE: 11/10/2022 00:31 INDICATION: Head injury. TECHNIQUE: Computed tomography (CT) of the cervical spine was performed without intravenous contrast. Automated exposure control and iterative reconstruction technique were employed. The dose-length pro duct was 363.29 mGy-cm. COMPARISON: CT cervical spine 09/16/22 FINDINGS: C1 ring is ununited anteriorly and posteriorly, which is chronic. There is 2 mm anterolisth esis of C4 on C5. There is kyphosis of lower cervical spine. There is 16 degrees levoscoliosis of cer vical spine. Vertebral body heights are normal. There is mildly decreased disc height at C3-C4 and se verely decreased disc height from C4-C5 through C6-C7. The following disc levels are specifically dis cussed: C2-C3: There is no uncovertebral joint osteoarthritis. There is severe right and mild left facet join t osteoarthritis. There is mild right neural foraminal stenosis. There is no central canal stenosis. C3-C4: There is mild bilateral uncovertebral joint osteoarthritis. There is moderate right and severe left facet joint osteoarthritis. There is mild left neural foraminal stenosis. There is no central c anal stenosis. C4-C5: There is severe right and moderate left uncovertebral joint osteoarthritis. There is severe ri ght and mild left facet joint osteoarthritis. There is mild right neural foraminal stenosis. There is mild central canal stenosis. C5-C6: There is severe bilateral uncovertebral joint osteoarthritis. There is severe bilateral facet joint osteoarthritis. There is mild bilateral neural foraminal stenosis. There is mild central canal stenosis. C6-C7: There is severe bilateral uncovertebral joint osteoarthritis. There is mild right and severe l eft facet joint osteoarthritis. There is mild right and moderate left neural foraminal stenosis. Ther e is mild central canal stenosis. C7-T1: There is ankylosis of the uncovertebral joints with mild hypertrophy. There is ankylosis of le ft facet joint with mild hypertrophy. There is moderate left neural foraminal stenosis. There is no c entral canal stenosis. IMPRESSION: 1. No acute fracture. 2. Severe cervical spondylosis. 3. Cervical levoscoliosis. Reviewed, dictated and finalized at location A. STOCKER
[2022-11-09 21:51] VITALS: BP 159/100; PULSE 70; RESP 12; TEMP 36.5; O2SAT 95
[2022-11-10] VITALS (21 sets, daily range): BP systolic 135–193; BP diastolic 83–102; PULSE 63–67; RESP 17; TEMP 36.4; O2SAT 93–98
--- NOTE | 2022-11-10 03:31 | ED.GENADULT ---
HPI - General Adult General Chief complaint: Fall Stated complaint: fall, head injury lac, hematoma Time Seen by Provider: 11/10/22 01:47 History of Present Illness HPI narrative: Patient is a 82-year-old female who presents the emergency department with chief complaint of fall from wheelchair. Patient was a resident of a local facility and apparently had a ground-level fall out of her wheelchair and struck her head. The patient reports that she has pain in her head and pain in her lumbar region. The facility reports that there was swelling on her scalp and also has abrasion/possible laceration. Related Data Home Medications Medication Instructions Recorded Confirmed donepezil 5 mg tablet 5 mg PO DAILY 02/04/20 08/24/22 pravastatin 40 mg tablet 80 mg PO DAILY 02/04/20 08/29/22 artificial 1 drp EACH EYE TID 08/24/22 08/29/22 tears(zlyzvgu-[id number]) 0.1 %-0.3 %-0.2 % eye drops (GenTeal Tears Moderate) atenolol 25 mg tablet 25 mg PO BID 08/24/22 08/29/22 bupropion HCl 150 mg tablet,12 hr 150 mg PO QAM 08/24/22 08/29/22 sustained-release carbidopa 25 mg-levodopa 250 mg 2 tablet PO QID 08/24/22 08/29/22 tablet celecoxib 200 mg capsule 200 mg PO DAILY 08/24/22 08/29/22 cyanocobalamin (vitamin B-12) See Rx Instructions .Route .COMPLEX 08/24/22 08/29/22 1,000 mcg/mL injection syringe docusate sodium 100 mg capsule 100 mg PO BID 08/24/22 08/29/22 fluticasone propionate 50 2 spray intranasal BID PRN 08/24/22 08/29/22 mcg/actuation nasal Congestion spray,suspension memantine 28 mg capsule 28 mg PO DAILY 08/24/22 08/29/22 sprinkle,extended release 24hr mirtazapine 30 mg tablet 30 mg PO DAILY 08/24/22 08/29/22 oxybutynin chloride 5 mg 5 mg PO DAILY 08/24/22 08/29/22 tablet,extended release 24 hr oxymetazoline 0.05 % nasal spray 2 spray intranasal Q12H PRN 08/24/22 08/29/22 Congestion polyethylene glycol 3350 17 gram 17 g PO DAILY PRN Constipation 08/24/22 08/29/22 oral powder packet sennosides 8.6 mg-docusate sodium 1 tab-cap PO HS 08/24/22 08/29/22 50 mg tablet (Stimulant Laxative Plus) sertraline 100 mg tablet 100 mg PO DAILY 08/24/22 08/29/22 Allergies Allergy/AdvReac Type Severity Reaction Status Date / Time nitrofurantoin Allergy Unknown Rash Verified 11/09/22 21:11 Fish Containing Products Allergy Unknown Verified 11/09/22 21:11 shrimp Allergy Unknown Verified 11/09/22 21:11 Review of Systems Review of Systems: A 10 system review of systems was completed on the patient and is negative except for what is stated in the HPI. Nursing and ancillary documentation was reviewed. [facility] Past Medical History Medical History History of chronic kidney disease History of dementia History of hyperlipidemia History of Parkinson's disease Social History Social History Smoking status: Never smoker Alcohol intake: never Substance use: never Lack of Transportation: No Lack of Food: Never True Current Housing: I Have Housing Concerned About Future Housing: No Difficulty Paying Gas/Electric Bills: No Difficulty Paying for Meds: No Currently Unemployed: No Education: Associate Degree Difficulty w/ Childcare or Family Care: No Gender identity (if verbalized by the patient): Female Spiritual care concerns: No Exam Narrative: GENERAL: Well-appearing, well-nourished, and in no acute distress. HEAD: Normocephalic, contusion present on scalp. EYES: PERRLA and EOMI. ENT: Nares clear, no rhinorrhea or epistaxis. Mucous membranes moist. NECK: Supple. CHEST: Clear to auscultation. No respiratory distress. HEART: Regular rate and rhythm. No murmur heard. Normal peripheral pulses. ABDOMEN: Soft, nontender, nondistended, normal active bowel sounds. Back: Tenderness to palpation in the lumbar region EXTREMITIES: Normal range of motion. No margarita
--- NOTE | 2022-11-10 04:32 | PC.NURSE ---
Called patients daughter Lalitha to give update and results. Called patient report to Sofia at [facility] at [phone].
--- NOTE | 2022-11-10 05:04 | PC.NURSE ---
EMS arrives to transfer patient back to the [place].
== END 2022-11-10 05:04 ==
PROVIDERS: Emergency Provider Emergency Medicine; PCP Family Medicine
DX: S00.03XA Contusion of scalp, initial encounter (principal); S00.01XA Abrasion of scalp, initial encounter; W05.0XXA Fall from non-moving wheelchair, initial encounter; F03.90 Unspecified dementia, unspecified severity, without behavioral disturbance, psychotic disturbance, mood disturbance, and anxiety; E78.5 Hyperlipidemia, unspecified; G20 Parkinson's disease; F02.80 Dementia in other diseases classified elsewhere, unspecified severity, without behavioral disturbance, psychotic disturbance, mood disturbance, and anxiety; N18.9 Chronic kidney disease, unspecified
CPT/HCPCS: 70450; 72125; 72131; 99284